=== PATIENT | female | born 1975 | race Caucasian/White ===

== ENCOUNTER 2016-07-08 05:51 | Emergency (ER) | payer SELFPAY ==
[~2016-07-08] VITALS: Ht 162.6 cm; Wt 97.2 kg
[~2016-07-08 05:51] MED LIST: GABA300C3 PO; GEOD80CA PO; LISI40TA PO; RISP1 PO; ZOLO20CO PO
[2016-07-08 05:57] VITALS: BP 113/80; PULSE 79; RESP 18; TEMP 98.3; O2SAT 96
[2016-07-08] MEDS ORDERED: RISP3 PO (06:06)
[2016-07-08] MEDS ORDERED: ZIPR40 PO (06:06)
[2016-07-08] MEDS ORDERED: GABA300C5 PO (06:06)
[2016-07-08] MEDS ORDERED: ORPHENADRINE INJ 60 MG/2 ML AMP IM ONE (06:15)
[2016-07-08] MEDS ORDERED: KETOROLAC TROMETHAMINE 60 MG/2 ML (IM) VIAL IM ONE (06:15)
--- NOTE | 2016-07-08 06:24 | PD ---
HPI Chief Complaint: Pain: Acute or Chronic Time Seen by Provider: 06:54 Travel History International Travel<30 days: No Contact w/Intl Traveler<30days: No Traveled to known affect area: No History of Present Illness HPI 41 year-old female presents to the emergency department by private transportation in the care of her spouse for evaluation of low back pain and left hip pain that awakened her from sleep this morning. Patient reports pain radiates down her left ear. No report of numbness tingling or weakness or bladder or bowel dysfunction or saddle anesthesia. Patient reports she did injure her back for further years ago. Patient denies any known recent injury. Patient has been taking left over antibiotic for a possible urinary tract infection. No fever or chills. No report of chest pain shortness of breath respiratory illness nausea vomiting diarrhea or abdominal pain. Patient rates low back pain and hip pain as severe. Patient has been well otherwise. Patient denies is status post hysterectomy history of endometriosis with 3 laparoscopic surgeries also status post 2 in the past. Patient also has history of hypertension. Patient has taken no medications prior to arrival to the emergency department. Pain is 10 over 10 intensity. PFSH Past Medical History Narrative Medical Anxiety depression bipolar disorder hypertension hysterectomy laparoscopic surgery low back pain injury pattern no tobacco use alcohol use or substance use nursing notes reviewed Arthritis: No Asthma: No Autoimmune Disease: No Blood Disorders: No Bipolar Disorder: Yes Anxiety: Yes Depression: Yes Heart Rhythm Problems: No Cancer: No Cardiovascular Problems: No High Cholesterol: No Chemotherapy: No Chest Pain: No Congestive Heart Failure: No COPD: No Cerebrovascular Accident: No Diabetes: No Diminished Hearing: No Gastrointestinal Disorders: No GERD: No Glaucoma: No Genitourinary: No Headaches: No Hepatitis: No Hiatal Hernia: No Hypertension: Yes Immune Disorder: No Kidney Stones: No Musculoskeletal: Yes (HERNIATED DISKS L4, L5, L6) Neurologic: Yes (NERVE DAMAGE FROM c section) Psychiatric: Yes (PTSD) Reproductive: Yes (ENDOMETRIOSIS.) Respiratory: No Immunizations Current: No Migraines: No Myocardial Infarction: No Radiation Therapy: No Renal Failure: No Seizures: No Sleep Apnea: No Thyroid Disease: No Ulcer: No PNEUMOCCOCAL Vaccine (Year): 3 ?: Not Menopausal: Yes : 4 Para: 2 Miscarriage: 0 : 2 Past Surgical History Abdominal Surgery: Yes (laparoscopy x 3) AICD: No Cardiac Surgery: No Section: Yes (1991 and 1995) Ear Surgery: No Endocrine Surgery: No Eye Surgery: No Genitourinary Surgery: No Gynecologic Surgery: Yes (2 C-SECTIONS, LAP- X 3) Hysterectomy: Yes Neurologic Surgery: No Oral Surgery: No Pacemaker: No Thoracic Surgery: No Other Surgery: Yes (LAP SCOPE X 3) Social History Alcohol Use: No (SOBER SINCE 2012) Tobacco Use: No Substance Use: No Allergies-Medications (Allergen,Severity, Reaction): Coded Allergies: No Known Allergies (Verified , 07/08/16) Reported Meds & Prescriptions Reported Meds & Active Scripts Active Robaxin (Methocarbamol) 750 Mg Tab 750 Mg PO Q6HR Lortab (Hydrocodone-Acetaminophen) 5-325 Mg Tab 1 Tab PO Q6H PRN Pyridium (Phenazopyridine HCl) 100 Mg Tab 100 Mg PO Q8HR Bactrim DS (Sulfamethoxazole-Trimethoprim) 800-160 Mg Tab 1 Tab PO BID Reported Geodon (Ziprasidone) Unknown Strength Cap Unknown Dose PO BID Risperdal (Risperidone) 3 Mg Tab 3 Mg PO HS Gabapentin 300 Mg Cap 300 Mg PO BID Review of Systems Except as stated in HPI: all other systems reviewed are Neg General / Constitutional: No: Fever, Chills HENT: No: Headaches, Congestion, Neck Pain Cardiovascular: No: Chest Pain or Discomfort, Diaphoresis Respiratory: No: Cough, Shortness of Breath Gastrointestinal: No: Nausea, Vomiting, Abdominal Pain Genitourinary: Positive: Urgency, Frequency, Flank Pain Musculoskeletal: Positive: Pain (low back pain left hip pain) Skin: No Rash Neurologic: No: Weakness, Dizziness, Syncope, Focal Abnormalities, Coordination Problem, Change in Mentation, Paresthesia, Incontinence, Sensory Disturbance Psychiatric: Positive: Anxiety Endocrine: No: Heat Intolerance Hematologic/Lymphatic: No: Easy Bruising Physical Exam Narrative GENERAL: Well-developed well-nourished female in no acute distress no respiratory distress intermittently anxious appearing SKIN: Warm and dry. HEAD: Atraumatic. Normocephalic. EYES: Pupils equal and round. No scleral icterus. No injection or drainage. ENT: No nasal bleeding or discharge. Mucous membranes pink and moist. NECK: Trachea midline. No JVD. CARDIOVASCULAR: Regular rate and rhythm. RESPIRATORY: No accessory muscle use. Clear to auscultation. Breath sounds equal bilaterally. GASTROINTESTINAL: Abdomen soft, non-tender, nondistended. Hepatic and splenic margins not palpable. MUSCULOSKELETAL: Extremities without clubbing, cyanosis, or edema. No obvious deformities. DTRs 2+ and equal bilateral lower extremities without clonus. Sensory exam intact. Reproducible pain with palpation over the left SI joint. Negative straight leg raising. NEUROLOGICAL: Awake and alert. No obvious cranial nerve deficits. Motor grossly within normal limits. Five out of 5 muscle strength in the arms and legs. Normal speech. PSYCHIATRIC: Appropriate mood and affect; insight and judgment normal. Data Data Last Documented VS Vital Signs Date Time Temp Pulse Resp B/P Pulse Ox O2 Delivery O2 Flow Rate FiO2 07/08/16 06:07 07/08/16 05:57 98.3 79 18 96 Orders Urinalysis - C+S If Indicated (07/08/16 06:14) Spine, Lumbar - Ltd (Ap & Lat) (07/08/16 ) Orphenadrine Inj (Norflex Inj) (07/08/16 06:15) Hip, Uni(Ap&Lat) W Ap Pelvis (07/08/16 ) Ketorolac Inj (Toradol Inj) (07/08/16 06:15) Urine Culture (07/08/16 06:30) Ceftriaxone Inj (Rocephin Inj) (07/08/16 07:15) Lidocaine 1% Inj (50 Ml) (Xylocaine 1% I (07/08/16 07:15) Sulfamet-Trimeth Ds 800-160 Mg (Bactrim (07/08/16 07:15) Labs Laboratory Tests Test 07/08/16 06:30 Urine Color YELLOW Urine Turbidity MOD Urine pH 5.5 Urine Specific [place] 1.009 Urine Protein NEG mg/dL Urine Glucose (UA) NEG mg/dL Urine Ketones NEG mg/dL Urine Occult Blood TRACE Urine Nitrite POS Urine Bilirubin NEG Urine Leukocyte Esterase MOD Urine RBC 0-3 /hpf Urine WBC 25-49 /hpf Urine WBC Clumps OCC Urine Squamous Epithelial > 8 /hpf Cells Urine Bacteria MANY /hpf Urine Mucus FEW /lpf Microscopic Urinalysis Comment CULTURE INDICATED MDM Medical Decision Making Medical Screen Exam Complete: Yes Emergency Medical Condition: Yes Medical Record Reviewed: Yes Interpretation(s) UA: Positive nitrites positive WBCs positive bacteria; culture indicated Left hip x-ray: no acute bony abnormality noted Lumbar spine x-ray limited: No acute bony abnormalities identified Differential Diagnosis Sciatica, acute sacroiliitis, HNP, UTI; unlikely septic arthritis or cauda equina syndrome Narrative Course Patient was stable vital signs able to sit upright is minimal assistance but does have reproducible left SI tenderness and complains of recent UTI; patient administered Toradol 60 mg IM and Norflex 60 mg IM urine specimen collected and plain imaging of the lumbar spine and hip obtained Patient able to ambulate to the bathroom without assistance. Patient with abnormal urinalysis; first dose of antibiotic administered in the emergency department. Patient notes after Toradol and Norflex is clinically improved. Imaging studies revealed no acute bony abnormality. Patient is stable for outpatient management. Diagnosis Primary Impression: UTI (urinary tract infection) Qualified Code: N30.00 - Acute cystitis without hematuria Additional Impression: Sacroiliitis Referrals: [facility] call for appointment Primary Care Physician call for appointment Patient Instructions: General Instructions Additional Instructions: Increase fluid hydration Complete course of antibiotic as prescribed Take pain medication as prescribed as needed Apply moist heat to low back area Monitor temperature every 4 hours and take acetaminophen/Tylenol as needed for fever 100.4F or greater or for minor pain Take ibuprofen/Motrin/Advil 600 mg as often as every 6 hours are up to 800 mg as often as every 8 hours for pain associated with inflammation or for fever 100.4F or greater; did not use high-dose ibuprofen for greater than 2-3 days Follow-up with your primary care provider Return to the emergency department for any concerns or change in condition Med/Other Pt SpecificInfo: Prescription(s) given Scripts Methocarbamol (Robaxin)750 Mg [id number] Mg PO Q6HR #10 TAB Ref 0 Prov:Ingrid Chisholm MD 07/08/16 Hydrocodone-Acetaminophen (Lortab)5-325 Mg Tab1 Tab PO Q6H PRN (PAIN) #12 TAB Ref 0 Prov:Ingrid Chisholm MD 07/08/16 Phenazopyridine (Pyridium)100 Mg [id number] Mg PO Q8HR #6 TAB Ref 0 Prov:Ingrid Chisholm MD 07/08/16 Sulfamethoxazole-Trimethoprim (Bactrim DS)800-160 Mg Tab1 Tab PO BID #20 TAB Ref 0 Prov:Ingrid Chisholm MD 07/08/16 Disposition: 01 DISCHARGE HOME Condition: Stable Ingrid Chisholm MD Jul 08, 2016 06:24
[2016-07-08 06:41] LABS: BLOOD, URINE TRACE (NEG); GLUCOSE,URINE NEG (NEG); KETONE, URINE NEG (NEG); PH, URINE 5.5 (5.0-8.5)
[2016-07-08 06:44] LABS: NITRITE,URINE POS (NEG)
[2016-07-08 06:47] LABS: URINE COLOR YELLOW (YELLW/STRAW)
[2016-07-08 06:49] LABS: MUCUS URINE FEW /lpf (OCC); SQUAMOUS EPITHELIAL CELL URINE > 8 /hpf (0-5)
[2016-07-08 06:51] LABS: BACTERIA, URINE MANY /hpf; COMMENT (UR) CULTURE INDICATED; CULTURE IF INDICATED CULTURE INDICATED; RBC, URINE 0-3 /hpf (0-3)
[2016-07-08] MEDS ORDERED: HYDR-3533 PO (07:00)
[2016-07-08] MEDS ORDERED: ROBA750T PO (07:00)
[2016-07-08] MEDS ORDERED: PHEN0.4T PO (07:00)
[2016-07-08] MEDS ORDERED: BACT800T5 PO (07:00)
[2016-07-08] MEDS ORDERED: LIDOCAINE HCL 1% 50 ML VIAL XX ONE (07:15)
[2016-07-08] MEDS ORDERED: SULFAMETHOXAZOLE-TRIMETHOPRIM DS 800-160 MG TAB PO ONE (07:15)
--- NOTE | 2016-07-08 07:21 | RADHPO ---
EXAM DATE/TIME: 07/08/2016 06:58 [facility] COMPARISON: No previous studies available for comparison. INDICATIONS : Left hip pain / no known injury. MEDICAL HISTORY : None. SURGICAL HISTORY : Hysterectomy. section. ENCOUNTER: Initial ACUITY: 1 day PAIN SCORE: 8/10 LOCATION: Left Hip FINDINGS: Examination of the left hip was performed with AP Pelvis. The primary and secondary trabecular patte rn of the femoral neck is intact. The hip joint is of normal width without significant sclerosis or bony hypertrophy. The acetabulum is grossly intact. CONCLUSION: Unremarkable examination of the left hip. Lester Arguelles MD on July 08, 2016 at 7:19 Board Certified Radiologist. This report was verified electronically.
--- NOTE | 2016-07-08 07:22 | RADHPO ---
EXAM DATE/TIME: 07/08/2016 07:02 [facility] COMPARISON: No previous studies available for comparison. INDICATIONS : Low back pain / no known injury. MEDICAL HISTORY : None. SURGICAL HISTORY : Hysterectomy. section. ENCOUNTER: Initial ACUITY: 1 day PAIN SCORE: 8/10 LOCATION: Bilateral low back FINDINGS: Two view examination was performed. There are five non-rib bearing vertebral bodies. The vertebral bodies are in normal alignment without evidence of subluxation or scoliosis. The disc spaces are olena rowed at L4-5 and L5-S1 consistent with degenerative disc disease. Minimal anterior marginal spurring .. The pedicles are intact. Bony mineralization is normal. No fracture is identified. CONCLUSION: Narrowed L4-5 and L5-S1 disc spaces consistent with degenerative change. Minimal anterior marginal sp sandeep Arguelles MD on July 08, 2016 at 7:20 Board Certified Radiologist. This report was verified electronically.
[2016-07-08 07:53] VITALS: RESP 18
== END 2016-07-08 07:54 | disposition home or self-care (01) ==
LOC: PHEFT 05:51
DX: N30.00 Acute cystitis without hematuria (principal); M46.1 Sacroiliitis, not elsewhere classified; B96.20 Unspecified Escherichia coli [E. coli] as the cause of diseases classified elsewhere; I10 Essential (primary) hypertension; Z87.39 Personal history of other diseases of the musculoskeletal system and connective tissue; Z86.69 Personal history of other diseases of the nervous system and sense organs; Z86.59 Personal history of other mental and behavioral disorders
CPT/HCPCS: 72100; 73502; 81001; 87077; 87086; 87186; 96372; 99284; J0696; J1885; J2360

== ENCOUNTER 2017-02-01 07:46 | Observation (INO) | payer SELFPAY ==
[~2017-02-01] VITALS: Ht 162.6 cm; Wt 93.2 kg
[2017-02-01] VITALS (7 sets, daily range): BP systolic 125–184; BP diastolic 89–122; PULSE 65–82; RESP 16–18; TEMP 97.1–98.3; O2SAT 93–98
[~2017-02-01 07:46] MED LIST changes: +BACT800T5 PO; -GABA300C3 PO; +GABA300C5 PO; -GEOD80CA PO; +HYDR-3533 PO; -LISI40TA PO; +PHEN0.4T PO; -RISP1 PO; +RISP3 PO; +ROBA750T PO; +ZIPR40 PO; -ZOLO20CO PO
[2017-02-01] MEDS ORDERED: SODIUM CHLOR 0.9% 1000 ML INJ 1,000 ML IV ONE (08:04)
--- NOTE | 2017-02-01 08:10 | PD ---
HPI Chief Complaint: Syncope/Near-Syncope Time Seen by Provider: 07:59 Travel History International Travel<30 days: No Contact w/Intl Traveler<30days: No Traveled to known affect area: No History of Present Illness HPI 41-year-old female presents after she states she had a blackout episode this morning where she fell and hit her head. She states she also injured her left knee and right foot. She states she's had these episodes before but hasn't had a workup as to why she keeps passing out. She states that she didn't really eat dinner last night and was working on getting breakfast when she had a pass out episode. She states that she didn't have any symptoms before she fell. She states she has no chest pain or other concurrent complaints actively. She states she currently doesn't have a primary doctor and has been off of her blood pressure medication because of this for a couple years. Quality is loss of consciousness. Severity is from standing. PFSH Past Medical History Arthritis: No Asthma: No Autoimmune Disease: No Blood Disorders: No Bipolar Disorder: Yes Anxiety: Yes Depression: Yes Heart Rhythm Problems: No Cancer: No Cardiovascular Problems: No High Cholesterol: No Chemotherapy: No Chest Pain: No Congestive Heart Failure: No COPD: No Cerebrovascular Accident: No Diabetes: No Diminished Hearing: No Gastrointestinal Disorders: No GERD: No Glaucoma: No Genitourinary: No Headaches: No Hepatitis: No Hiatal Hernia: No Hypertension: Yes Immune Disorder: No Kidney Stones: No Musculoskeletal: Yes (HERNIATED DISKS L4, L5, L6) Neurologic: Yes (NERVE DAMAGE FROM c section) Psychiatric: Yes (PTSD) Reproductive: Yes (ENDOMETRIOSIS.) Respiratory: No Immunizations Current: No Migraines: No Myocardial Infarction: No Radiation Therapy: No Renal Failure: No Seizures: No Sleep Apnea: No Thyroid Disease: No Ulcer: No PNEUMOCCOCAL Vaccine (Year): 3 ?: Not Menopausal: Yes : 4 Para: 2 Miscarriage: 0 : 2 Past Surgical History Abdominal Surgery: Yes (laparoscopy x 3) AICD: No Cardiac Surgery: No Section: Yes (1991 and 1995) Ear Surgery: No Endocrine Surgery: No Eye Surgery: No Genitourinary Surgery: No Gynecologic Surgery: Yes (2 C-SECTIONS, LAP- X 3) Hysterectomy: Yes Neurologic Surgery: No Oral Surgery: No Pacemaker: No Thoracic Surgery: No Other Surgery: Yes (LAP SCOPE X 3) Social History Alcohol Use: No (SOBER SINCE 2013) Tobacco Use: No Substance Use: No Allergies-Medications (Allergen,Severity, Reaction): Coded Allergies: No Known Allergies (Verified , 02/01/17) Reported Meds & Prescriptions Reported Meds & Active Scripts Active Reported Geodon (Ziprasidone) Unknown Strength Cap Unknown Dose PO BID Risperdal (Risperidone) 3 Mg Tab 3 Mg PO HS Gabapentin 300 Mg Cap 300 Mg PO BID Review of Systems Except as stated in HPI: all other systems reviewed are Neg Physical Exam Narrative GENERAL: Well-nourished, well-developed patient. well appearing SKIN: Warm and dry. HEAD: Normocephalic EYES: No injection or drainage. pupils are equal ENT: No nasal drainage noted. NECK: Supple, trachea midline. nttp in midline with rom and palpation CARDIOVASCULAR: Regular rate and rhythm RESPIRATORY: Breath sounds equal bilaterally. No accessory muscle use. GASTROINTESTINAL: Abdomen soft, non-tender, nondistended. EXTREMITIES: No edema. Pain with palpation of right foot and left knee, no pain with other joints , neurovascularly intact, no lacerations over, compartments soft. BACK: Nontender without obvious deformity in midline across spine. NEUROLOGICAL: Awake and alert. Motor and sensory grossly within normal limits. Normal speech. Data Data Last Documented VS Vital Signs Date Time Temp Pulse Resp B/P (MAP) Pulse Ox O2 Delivery O2 Flow Rate FiO2 02/01/17 08:33 98 Room Air 02/01/17 07:54 98.0 82 16 145/89 (107) Orders Orders Foot, Complete (Biz4fcs) (02/01/17 08:04) Knee, Complete (4vws) (02/01/17 08:04) Electrocardiogram (02/01/17 08:04) Complete Blood Count With Diff (02/01/17 08:04) Comprehensive Metabolic Panel (02/01/17 08:04) Magnesium (Mg) (02/01/17 08:04) Ckmb (Isoenzyme) Profile (02/01/17 08:04) Troponin I (02/01/17 08:04) Act Partial Throm Time (Ptt) (02/01/17 08:04) Prothrombin Time / Inr (Pt) (02/01/17 08:04) Urinalysis - C+S If Indicated (02/01/17 08:04) Chest, Single Ap (02/01/17 08:04) Ct Brain W/O Iv Contrast(Rout) (02/01/17 08:04) Ecg Monitoring (02/01/17 08:04) Iv Access Insert/Monitor (02/01/17 08:04) Oximetry (02/01/17 08:04) Sodium Chloride 0.9% Flush (Ns Flush) (02/01/17 08:15) Sodium Chlor 0.9% 1000 Ml Inj (Ns 1000 M (02/01/17 08:04) Admit Order (Ed Use Only) (02/01/17 09:40) Labs Laboratory Tests Test 02/01/17 08:27 White Blood Count 4.0 TH/MM3 Red Blood Count 4.48 MIL/MM3 Hemoglobin 12.2 GM/DL Hematocrit 36.2 % Mean Corpuscular Volume 80.9 FL Mean Corpuscular Hemoglobin 27.3 PG Mean Corpuscular Hemoglobin Concent 33.7 % Red Cell Distribution Width 13.4 % Platelet Count 101 TH/MM3 Mean Platelet Volume 7.8 FL Neutrophils (%) (Auto) 50.8 % Lymphocytes (%) (Auto) 37.8 % Monocytes (%) (Auto) 9.7 % Eosinophils (%) (Auto) 0.8 % Basophils (%) (Auto) 0.9 % Neutrophils # (Auto) 2.1 TH/MM3 Lymphocytes # (Auto) 1.5 TH/MM3 Monocytes # (Auto) 0.4 TH/MM3 Eosinophils # (Auto) 0.0 TH/MM3 Basophils # (Auto) 0.0 TH/MM3 CBC Comment DIFF FINAL Differential Comment Prothrombin Time 11.8 SEC Prothromb Time International Ratio 1.1 RATIO Activated Partial Thromboplast Time 28.0 SEC Urine Collection Type CLEAN CATCH Urine Color YELLOW Urine Turbidity CLEAR Urine pH 5.5 Urine Specific [place] 1.010 Urine Protein NEG mg/dL Urine Glucose (UA) NEG mg/dL Urine Ketones NEG mg/dL Urine Occult Blood NEG Urine Nitrite NEG Urine Bilirubin NEG Urine Leukocyte Esterase NEG Urine Squamous Epithelial Cells 0-5 /hpf Microscopic Urinalysis Comment CULT NOT INDICATED Blood Urea Nitrogen 6 MG/DL Creatinine 0.61 MG/DL Random Glucose 94 MG/DL Total Protein 7.9 GM/DL Albumin 3.3 GM/DL Calcium Level 8.8 MG/DL Magnesium Level 1.7 MG/DL Alkaline Phosphatase 77 U/L Aspartate Amino Transf (AST/SGOT) 26 U/L Alanine Aminotransferase (ALT/SGPT) 18 U/L Total Bilirubin 0.8 MG/DL Sodium Level 135 MEQ/L Potassium Level 3.3 MEQ/L Chloride Level 99 MEQ/L Carbon Dioxide Level 27.8 MEQ/L Anion Gap 8 MEQ/L Estimat Glomerular Filtration Rate 107 ML/MIN Total Creatine Kinase 29 U/L Troponin I LESS THAN 0.02 NG/ML MDM Medical Decision Making Medical Screen Exam Complete: Yes Emergency Medical Condition: Yes Medical Record Reviewed: Yes (pmh confirmed) Interpretation(s) EKG shows sinus rhythm at [address] depression V1 through V5 without ST elevation or T-wave inversion CBC & BMP Diagram 02/01/17 08:27 Total Protein 7.9, Albumin 3.3 L, Calcium Level 8.8, Magnesium Level 1.7, Alkaline Phosphatase 77, Aspartate Amino Transf (AST/SGOT) 26, Alanine Aminotransferase (ALT/SGPT) 18, Total Bilirubin 0.8 Last 24 hours Impressions Knee X-Ray 02/01/17803 Signed Impressions: Service Date/Time: Wednesday, February 01, 2017 08:58 - CONCLUSION: Unremarkable examination of the left knee. Brenden Joiner MD Head CT 02/01/17803 Signed Impressions: Service Date/Time: Wednesday, February 01, 2017 08:44 - CONCLUSION: Normal examination. Brenden Joiner MD Foot X-Ray 02/01/17803 Signed Impressions: Service Date/Time: Wednesday, February 01, 2017 08:54 - CONCLUSION: A fracture is not seen. Brenden Joiner MD Chest X-Ray 02/01/17803 Signed Impressions: Service Date/Time: Wednesday, February 01, 2017 08:51 - CONCLUSION: No acute abnormality seen. Brenden Joiner MD Differential Diagnosis anemia, vasovagal, bleed, fracture, dehydration, atypical cardiac... Narrative Course Will check blood work, trauma imaging and reevaluate ED workup without traumatic findings from syncope. Given mild EKG changes in setting of syncope and no outpatient follow-up I advised for overnight observation for further testing given she has multi year untreated high blood pressure and the above. She agrees to this plan of care. Physician Communication Physician Communication dr escalante agrees to admit Diagnosis Primary Impression: Syncope Qualified Codes: R55 - Syncope and collapse Admitting Information Admitting Physician Requests: Observation Gloria Madera MD Feb 01, 2017 08:10
[2017-02-01] MEDS ORDERED: SODIUM CHLORIDE 0.9% FLUSH 10 ML FLUSH IVF PRN (08:15)
[2017-02-01 08:36] LABS: AUTOMATED NEUTROPHIL # 2.1 TH/MM3 (1.8-7.7); BASOPHIL % 0.9 % (0.0-2.0); BLOOD, URINE NEG (NEG); EOSINOPHIL % 0.8 % (0.0-4.0); GLUCOSE,URINE NEG (NEG); HEMATOCRIT 36.2 % (35.0-46.0); HEMO FLAGS DIFF FINAL; KETONE, URINE NEG (NEG); LYMPH % 37.8 % (9.0-44.0); LYMPHOCYTE # 1.5 TH/MM3 (1.0-4.8); MEAN CELL VOLUME 80.9 FL (80.0-100.0); MEAN CORPUSCULAR HEMOGLOBIN 27.3 PG (27.0-34.0); MEAN CORPUSCULAR HGB CONC 33.7 % (32.0-36.0); MONO % 9.7 % (0.0-8.0); NEUT % 50.8 % (16.0-70.0); NITRITE,URINE NEG (NEG); PH, URINE 5.5 (5.0-8.5); PLATELET COUNT 101 TH/MM3 (150-450); RED BLOOD COUNT 4.48 MIL/MM3 (4.00-5.30); RED CELL DISTRIBUTION WIDTH 13.4 % (11.6-17.2)
[2017-02-01 08:41] LABS: METHOD OF COLLECTION CLEAN CATCH; URINE COLOR YELLOW (YELLW/STRAW)
[2017-02-01 08:42] LABS: COMMENT (UR) CULT NOT INDICATED; CULTURE IF INDICATED CULT NOT INDICATED; SQUAMOUS EPITHELIAL CELL URINE 0-5 /hpf (0-5)
[2017-02-01 08:43] LABS: CHLORIDE 99 MEQ/L (98-107); POTASSIUM 3.3 MEQ/L (3.5-5.1); SODIUM (NA) 135 MEQ/L (136-145)
[2017-02-01 08:46] LABS: ANION GAP 8 MEQ/L (5-15); BICARBONATE 27.8 MEQ/L (21.0-32.0); BLOOD UREA NITROGEN 6 MG/DL (7-18); MAGNESIUM 1.7 MG/DL (1.5-2.5)
[2017-02-01 08:47] LABS: INTERNATIONAL NORMALIZED RATIO 1.1 RATIO; PROTHROMBIN TIME - PATIENT 11.8 SEC (9.8-11.6)
[2017-02-01 08:49] LABS: ALT (GPT) 18 U/L (10-53); GLOMERULAR FILTRATION RATE 107 ML/MIN (>89)
[2017-02-01 08:51] LABS: TOTAL BILIRUBIN ADULT 0.8 MG/DL (0.2-1.0)
[2017-02-01 08:52] LABS: ALKALINE PHOSPHATASE 77 U/L (45-117)
[2017-02-01 08:54] LABS: CREATINE KINASE 29 U/L (26-192)
[2017-02-01 08:58] LABS: AST (GOT) 26 U/L (15-37)
--- NOTE | 2017-02-01 09:20 | RADRPT ---
EXAM DATE/TIME: 02/01/2017 08:44 [facility] COMPARISON: CT BRAIN W/O CONTRAST, May 18, 2013, 23:45. INDICATIONS : Syncpal episode early this morning. Patient fell and hit top of her head. RADIATION DOSE: 61.02 CTDIvol (mGy) MEDICAL HISTORY : None SURGICAL HISTORY : section. Hysterectomy. ENCOUNTER: Initial ACUITY: 1 day PAIN SCALE: 6/10 LOCATION: cranial TECHNIQUE: Multiple contiguous axial images were obtained of the head. Using automated exposure control and adj ustment of the mA and/or kV according to patient size, radiation dose was kept as low as reasonably a chievable to obtain optimal diagnostic quality images. DICOM format image data is available electro nically for review and comparison. FINDINGS: CEREBRUM: The ventricles are normal for age. No evidence of midline shift, mass lesion, hemorrhage or acute in farction. No extra-axial fluid collections are seen. POSTERIOR FOSSA: The cerebellum and brainstem are intact. The 4th ventricle is midline. The cerebellopontine angle i s unremarkable. EXTRACRANIAL: The visualized portion of the orbits is intact. SKULL: The calvaria is intact. No evidence of skull fracture. CONCLUSION: Normal examination. Brenden Joiner MD on February 01, 2017 at 9:17 Board Certified Radiologist. This report was verified electronically.
--- NOTE | 2017-02-01 09:21 | RADRPT ---
EXAM DATE/TIME: 02/01/2017 08:51 [facility] COMPARISON: CHEST SINGLE AP, May 26, 2013, 13:16. INDICATIONS : Syncope with fall MEDICAL HISTORY : None. SURGICAL HISTORY : section. ENCOUNTER: Initial ACUITY: 1 day PAIN SCORE: 0/10 LOCATION: Bilateral chest FINDINGS: The heart size is normal. There is minimal increased density at the lateral left base likely related to scarring. This was present previously. A focal consolidation is not seen. No effusion is seen. CONCLUSION: No acute abnormality seen. Brenden Joiner MD on February 01, 2017 at 9:19 Board Certified Radiologist. This report was verified electronically.
--- NOTE | 2017-02-01 09:23 | RADRPT ---
EXAM DATE/TIME: 02/01/2017 08:54 [facility] COMPARISON: No previous studies available for comparison. INDICATIONS : Sycope with fall, right foot pain worse 5th toe and across top of foot MEDICAL HISTORY : None. SURGICAL HISTORY : section. ENCOUNTER: Initial ACUITY: 1 day PAIN SCORE: 9/10 LOCATION: Right foot FINDINGS: Three view examination of the right foot demonstrates no soft tissue swelling, dislocation, or fractu re. The tarsal bones appear intact. The interphalangeal and metatarsophalangeal joints are intact. The calcaneus is intact. Bony mineralization is normal. CONCLUSION: A fracture is not seen. Brenden Joiner MD on February 01, 2017 at 9:20 Board Certified Radiologist. This report was verified electronically.
--- NOTE | 2017-02-01 09:24 | RADRPT ---
EXAM DATE/TIME: 02/01/2017 08:58 [facility] COMPARISON: No previous studies available for comparison. INDICATIONS : Syncope with fall, left knee pain MEDICAL HISTORY : None. SURGICAL HISTORY : section. ENCOUNTER: Initial ACUITY: 1 day PAIN SCORE: 6/10 LOCATION: Left knee FINDINGS: Four view examination of the left knee demonstrates no evidence of fracture or dislocation. Bony min eralization is normal. The articular surfaces are intact. The suprapatellar soft tissues have a nor mal configuration. CONCLUSION: Unremarkable examination of the left knee. Brenden Joiner MD on February 01, 2017 at 9:22 Board Certified Radiologist. This report was verified electronically.
[2017-02-01] MEDS ORDERED: ACETAMINOPHEN/HYDROcodone 325 MG/5 MG TAB PO ONE (10:30)
[2017-02-01] MEDS ORDERED: SODIUM CHLORIDE 0.9% FLUSH 10 ML FLUSH IV FLUSH PRN (11:15)
--- NOTE | 2017-02-01 12:43 | EKG ---
Date Performed: 02/01/2017 Time Performed: 08:30:52 PTAGE: 41 years EKG: Sinus rhythm ST/T-WAVE ABNORMALITY, CONSIDER ANTERIOR ISCHEMIA ABNORMAL ECG PREVIOUS TRACING : 05/26/2013 12.37 Compared to previous tracing, anterior ST/T changes are now present. DOCTOR: Aris Victor Interpretating Date/Time 02/01/2017 12:41:56
--- NOTE | 2017-02-01 14:37 | RADRPT ---
EXAM DATE/TIME: 02/01/2017 13:59 [facility] COMPARISON: No previous studies available for comparison. INDICATIONS : Syncope. MEDICAL HISTORY : Hypertension. Dyspnea. Endometriosis. SURGICAL HISTORY : section. Hysterectomy. Laparoscopy. ENCOUNTER: Initial ACUITY: 1 day PAIN SCORE: 0/10 LOCATION: Bilateral neck PEAK SYSTOLIC VELOCITIES (cm/sec): ICA/CCA RATIO: Right: 0.9 Left: 1.3 ICA: Right: 74 Left: 78 CCA: Right: 83 Left: 62 ECA: Right: 59 Left: 66 VERTEBRAL: Right: 48 antegrade Left: 44 antegrade Elevated flow velocities and ICA/CCA ratios have been found to correlate with increased degrees of vessel stenosis, calculated as percentage of diameter relative to a normal segment of distal ICA/CCA FINDINGS: RIGHT CAROTID: No significant stenosis is visualized. The waveforms are within normal limits. LEFT CAROTID: No significant stenosis is visualized. The waveforms are within normal limits. VERTEBRAL ARTERIES: Antegrade flow is seen in both vertebral arteries. MISCELLANEOUS: None. CONCLUSION: 1. No significant carotid flow-limiting stenosis. 2. Antegrade vertebral artery flow bilaterally. Inder Hummel MD on February 01, 2017 at 14:35 Board Certified Radiologist. This report was verified electronically.
--- NOTE | 2017-02-01 16:50 | HHI.HP ---
[facility] Primary [facility] Physician No Primary Care Physician Admission Diagnosis syncope Diagnoses: (1) Syncope Diagnosis: Principal Chief Complaint: Passing out Travel History International Travel<30 Days: No Contact w/Intl Traveler <30 Da: No Traveled to Known Affected Are: No History of Present Illness Written by Dev Quinteros, acting as scribe for Dr. Story on 02/01/17 at 16:36. 41-year-old female with known history of hypertension, anxiety, depression, bipolar, herniated disc of the lumbar spine, posttraumatic stress disorder who presented to hospital because of syncopal episodes. Patient states for the last 2 months she has been having episodes of syncope and passing out. She states that it usually happens whenever she stands up and walks for approximately 10 feet that she develops lightheadedness dizziness and blacks out. Denies any loss of bowel or bladder control. Patient states that she is usually out for a few seconds and she has not confused when she wakes up. Patient states that she was standing up in the kitchen today and she had the same episode. This time she fell down hitting her right foot and she has significant pain in her foot so she came to the hospital for evaluation. Patient had workup done emergency department and there was no obvious etiology of the patient's syncope is recommended by the emergency physician the patient be observed in the hospital for further evaluation. Subsequently the patient has been complaining of a sharp left-sided chest pain without any radiation, nausea, vomiting, diaphoresis. It is reproducible on palpation over on the left side of the rib. She denies any shortness of breath or dyspnea. Patient did have orthostatic vitals performed which did show blood pressure while laying down 181/116 and when she stood up it was 143/103.. Patient does have history of hypertension which she has not taken any blood pressure medication over 2 years because she has not had a prescription for has not followed up with any primary medical doctor. She used to be on lisinopril. Review of Systems Constitutional: COMPLAINS OF: Dizziness Cardiovascular: COMPLAINS OF: Syncope Past Family Social History Past Medical History Hypertension Bipolar disorder Anxiety Depression Herniated disc L4, L5, L6 Posttraumatic stress disorder History of endometriosis Past Surgical History Laparoscopic surgery 3 2 Hysterectomy Reported Medications Reported Meds & Active Scripts Active Reported Geodon (Ziprasidone) Unknown Strength Cap Unknown Dose PO BID Risperdal (Risperidone) 3 Mg Tab 3 Mg PO HS Gabapentin 300 Mg Cap 300 Mg PO BID Allergies: Coded Allergies: No Known Allergies (Verified , 02/01/17) Family History Reviewed and significant for mother still alive at age 61 but she does not know if she has any medical conditions. She does know that her aunt has breast cancer, her grandmother had lung cancer, she does not know her father. Social History Patient denies any tobacco or illicit drugs. She has been sober since 2012 Physical Exam Vital Signs Vital Signs Date Time Temp Pulse Resp B/P (MAP) Pulse Ox O2 Delivery O2 Flow Rate FiO2 02/01/17 12:30 97.8 69 16 181/116 (137) 93 181/122 (141) 143/101 (115) 02/01/17 11:00 146/92 (110) 02/01/17 08:33 98 Room Air 02/01/17 07:54 98.0 82 16 145/89 (107) 96 Physical Exam GENERAL: Well-developed, well-nourished, in no acute distress. alert and orientated HEENT: Head is normocephalic without any lesions or masses noted. Facial features are symmetric. Eyes: Pupils equal round reactive to light. Extraocular muscles are intact. Conjunctivae were clear. Oropharyngeal: Pharynx without any erythema edema. Tongue is midline without deviation. Buccal mucosa is moist without any masses or lesions NECK: Supple without any masses. Trachea midline no deviation. No JVD, no bruits are appreciated CARDIAC: Regular rhythm, regular rate. S1/S2 are heard. No murmurs gallops or rubs. Patient has reproducible tenderness noted along the left side rib LUNGS: Clear to auscultation bilaterally. No wheeze, rhonchi or rales. No use of accessory muscles on inspiration or expiration. ABDOMEN: Soft, nontender. Nondistended. Bowel sounds heard in all 4 quadrants. No organomegaly or masses. Negative rebound, negative guarding EXTREMITIES: No edema, pulses are equal bilaterally. No cyanosis or clubbing. Right foot fifth digit has ecchymosis NEUROLOGY: Mood and affect appear appropriate. Cranial nerves II through XII grossly intact. Muscle strength 5/5 in upper and lower extremities bilaterally. Deep tendon reflexes are 2+ in upper and lower extremities bilaterally. Laboratory Laboratory Tests Test 02/01/17 08:27 02/01/17 11:13 White Blood Count 4.0 Red Blood Count 4.48 Hemoglobin 12.2 Hematocrit 36.2 Mean Corpuscular Volume 80.9 Mean Corpuscular Hemoglobin 27.3 Mean Corpuscular Hemoglobin Concent 33.7 Red Cell Distribution Width 13.4 Platelet Count 101 Mean Platelet Volume 7.8 Neutrophils (%) (Auto) 50.8 Lymphocytes (%) (Auto) 37.8 Monocytes (%) (Auto) 9.7 Eosinophils (%) (Auto) 0.8 Basophils (%) (Auto) 0.9 Neutrophils # (Auto) 2.1 Lymphocytes # (Auto) 1.5 Monocytes # (Auto) 0.4 Eosinophils # (Auto) 0.0 Basophils # (Auto) 0.0 CBC Comment DIFF FINAL Differential Comment Prothrombin Time 11.8 Prothromb Time International Ratio 1.1 Activated Partial Thromboplast Time 28.0 Urine Collection Type CLEAN CATCH Urine Color YELLOW Urine Turbidity CLEAR Urine pH 5.5 Urine Specific [place] 1.010 Urine Protein NEG Urine Glucose (UA) NEG Urine Ketones NEG Urine Occult Blood NEG Urine Nitrite NEG Urine Bilirubin NEG Urine Leukocyte Esterase NEG Urine Squamous Epithelial Cells 0-5 Microscopic Urinalysis Comment CULT NOT INDICATED Blood Urea Nitrogen 6 Creatinine 0.61 Random Glucose 94 Total Protein 7.9 Albumin 3.3 Calcium Level 8.8 Magnesium Level 1.7 Alkaline Phosphatase 77 Aspartate Amino Transf (AST/SGOT) 26 Alanine Aminotransferase (ALT/SGPT) 18 Total Bilirubin 0.8 Sodium Level 135 Potassium Level 3.3 Chloride Level 99 Carbon Dioxide Level 27.8 Anion Gap 8 Estimat Glomerular Filtration Rate 107 Total Creatine Kinase 29 Troponin I LESS THAN 0.02 LESS THAN 0.02 Result Diagram: 02/01/1782602/01/17826 Imaging Last Impressions Knee X-Ray 02/01/17803 Signed Impressions: Service Date/Time: Wednesday, February 01, 2017 08:58 - CONCLUSION: Unremarkable examination of the left knee. Brenden Joiner MD Head CT 02/01/17803 Signed Impressions: Service Date/Time: Wednesday, February 01, 2017 08:44 - CONCLUSION: Normal examination. Brenden Joiner MD Foot X-Ray 02/01/17 0804 Signed Impressions: Service Date/Time: Wednesday, February 01, 2017 08:54 - CONCLUSION: A fracture is not seen. Brenden Joiner MD Chest X-Ray 02/01/1704 Signed Impressions: Service Date/Time: Wednesday, February 01, 2017 08:51 - CONCLUSION: No acute abnormality seen. Brenden Joiner MD Carotid Artery Ultrasound 02/01/17 0000 Signed Impressions: Service Date/Time: Wednesday, February 01, 2017 13:59 - CONCLUSION: 1. No significant carotid flow-limiting stenosis. 2. Antegrade vertebral artery flow bilaterally. Inder Hummel MD [place] VTE Risk Assessment Caprini VTE Risk Assessment: Mod/High Risk (score >= 2) Caprini Risk Assessment Model Point Value = 1 Point Value = 2 Point Value = 3 Point Value = 5 Age 41-60 Minor surgery BMI > 25 kg/m2 Swollen legs Varicose veins or History of unexplained or recurrent spontaneous Oral contraceptives or hormone replacement Sepsis (< 1 month) Serious lung disease, including pneumonia (< 1 month) Abnormal pulmonary function Acute myocardial infarction Congestive heart failure (< 1 month) History of inflammatory bowel disease Medical patient at bed rest Age 61-74 Arthroscopic surgery Major open surgery (> 45 min) Laparoscopic surgery (> 45 min) Malignancy Confined to bed (> 72 hours) Immobilizing plaster cast Central venous access Age >= 75 History of VTE Family history of VTE Factor V Leiden Prothrombin [id number] Lupus anticoagulant Anticardiolipin antibodies Elevated serum homocysteine Heparin-induced thrombocytopenia Other congenital or acquired thrombophilia Stroke (< 1 month) Elective arthroplasty Hip, pelvis, or leg fracture Acute spinal cord injury (< 1 month) Prophylaxis Regimen Total Risk Factor Score Risk Level Prophylaxis Regimen 0-1 Low Early ambulation 2 Moderate Order ONE of the following: *Sequential Compression Device (SCD) *Heparin 5000 units SQ BID 3-4 Higher Order ONE of the following medications: *Heparin 5000 units SQ TID *Enoxaparin/Lovenox 40 mg SQ daily (WT < 150 kg, CrCl > 30 mL/min) *Enoxaparin/Lovenox 30 mg SQ daily (WT < 150 kg, CrCl > 10-29 mL/min) *Enoxaparin/Lovenox 30 mg SQ BID (WT < 150 kg, CrCl > 30 mL/min) AND/OR *Sequential Compression Device (SCD) 5 or more Highest Order ONE of the following medications: *Heparin 5000 units SQ TID (Preferred with Epidurals) *Enoxaparin/Lovenox 40 mg SQ daily (WT < 150 kg, CrCl > 30 mL/min) *Enoxaparin/Lovenox 30 mg SQ daily (WT < 150 kg, CrCl > 10-29 mL/min) *Enoxaparin/Lovenox 30 mg SQ BID (WT < 150 kg, CrCl > 30 mL/min) AND *Sequential Compression Device (SCD) Assessment and Plan Assessment and Plan Syncopal episodes, recurrent CT the brain does not indicate any acute abnormality Carotid ultrasound did not indicate any acute abnormality Orthostatic vitals were positive for significant orthostasis Awaiting echocardiogram Continue monitor telemetry cardiology consultation Hypertension, uncontrolled Will defer blood pressure management to director biologics Right foot pain secondary to fall X-rays do not indicate any acute fracture Continue elevation, ice, ibuprofen Bipolar, anxiety, depression, posttraumatic stress disorder Continue gabapentin and Risperdal, nursing staff to obtain accurate dosage of Geodon DVT prevention sequential compression devices This note was transcribed by lena Quinteros. I, Dr. Renaldo Ulloa personally performed the history, physical exam, and medical decision making; and confirmed the accuracy of the information in the transcribed note. Authenticated by Dr. Renaldo Ulloa on 02/01/17 at 17:46. Problem Qualifiers (1) Syncope: Qualified Codes: R55 - Syncope and collapse Dev Quinteros Feb 01, 2017 16:50 Renaldo Oconnell MD Feb 01, 2017 17:46
--- NOTE | 2017-02-01 16:54 | PD.CONS ---
HPI Consult Requested By Reason for Consult Syncope with abnormal EKG Primary Care Physician No Primary Care Physician History of Present Illness The patient has no definite cardiac history. She notes that over the last few months she has had 3 episodes of passing out. This morning she woke up at 3-4 AM. She had not eaten that much last night. When she woke up she was extremely hungry. She got up from bed quickly, felt lightheaded and had a very transient syncopal episode. There was no incontinence or confusion afterwards nor any other cardiac symptoms. She has noted that this happened one other time when she woke up at night and got up quickly and then happened once when she was sitting down in the afternoon and got up quickly. The latter was witnessed by her and she states that this was extremely transient. She has no other cardiac symptomatology. Review of Systems HEENT: COMPLAINS OF: Lightheadedness Respiratory: COMPLAINS OF: Snoring, DENIES: Cough, Wheezing Cardiovascular: COMPLAINS OF: Syncope Genitourinary: DENIES: Urinary incontinence Neurologic: DENIES: Tingling or numbness Musculoskeletal: COMPLAINS OF: Joint pain Psychiatric: COMPLAINS OF: Depression, Sleep disturbances Past Family Social History Allergies: Coded Allergies: No Known Allergies (Verified , 02/01/17) Past Medical History Probable hypertension-untreated Obesity Probable sleep apnea-the patient has never been tested but uses a Cpap that a friend of hers got at a [employer] sale. Bipolar disorder Lumbar disc disease Endometriosis Prior alcoholism Past Surgical History 2 Hysterectomy Laparoscopic surgery for endometriosis Reported Medications Reported Meds & Active Scripts Active Reported Geodon (Ziprasidone) Unknown Strength Cap Unknown Dose PO BID Risperdal (Risperidone) 3 Mg Tab 3 Mg PO HS Gabapentin 300 Mg Cap 300 Mg PO BID Active Ordered Medications Current Medications Medications (Trade) Dose Ordered Sig/Abbi Route Start Time Stop Time Status Last Admin (NS Flush) 2 ml UNSCH PRN IV FLUSH 02/01/17 11:15 (NS Flush) 2 ml BID IV FLUSH 02/01/17 21:00 (Neurontin) 300 mg BID PO 02/01/17 21:00 (risperDAL) 3 mg HS PO 02/01/17 21:00 Family History Unremarkable for for premature coronary disease or cardiac disease Social History The patient is . She is a former alcoholic and has not drank since 2012. She does not smoke Physical Exam Vital Signs Vital Signs Date Time Temp Pulse Resp B/P (MAP) Pulse Ox O2 Delivery O2 Flow Rate FiO2 02/01/17 12:30 97.8 69 16 181/116 (137) 93 181/122 (141) 143/101 (115) 02/01/17 11:00 146/92 (110) 02/01/17 08:33 98 Room Air 02/01/17 07:54 98.0 82 16 145/89 (107) 96 Physical Exam CONSTITUTIONAL: Obese patient in no apparent distress. EYES: Conjunctiva normal. Sclera nonicteric. Eyelids normal. No xanthelasma. HEENT: Oral mucosa normal without pallor or cyanosis. NECK: JVD less than or equal to 5 cm of water. RESPIRATORY: Breathing is unlabored without accessory muscle use. Normal breath sounds. No wheezes, rales or rubs present. CARDIOVASCULAR: Normal point of maximal impulse. No cardiac thrill present. Regular rate and rhythm. No murmurs, gallops, rubs or clicks present. PULSES: Carotid arteries: Normal pulses bilaterally without bruits. Palmar arteries: Radial pulses 1-2+ bilaterally Abdominal aorta: Aortic pulses normal without bruits or enlargement. Femoral arteries: 1-2+ bilaterally. No bruits present. Pedal pulses: 1-2+ bilaterally PERIPHERAL CIRCULATION: No cyanosis, clubbing, edema or varicosities present. GASTROINTESTINAL: Normal bowel sounds. Nontender without rigidity or guarding. No masses present. No hepatomegaly. Liver is nontender to palpation and spleen is nonpalpable. Digital rectal exam-not indicated for cardiovascular exam. MUSCULOSKELETAL: No kyphosis or scoliosis present. The patient is not ambulated. Able to undergo rehabilitation. SKIN: Skin turgor is normal. No rashes. NEUROLOGIC: Grossly oriented to person, place and time. Normal mood and appropriate affect. Laboratory Laboratory Tests Test 02/01/17 08:27 02/01/17 11:13 White Blood Count 4.0 Red Blood Count 4.48 Hemoglobin 12.2 Hematocrit 36.2 Mean Corpuscular Volume 80.9 Mean Corpuscular Hemoglobin 27.3 Mean Corpuscular Hemoglobin Concent 33.7 Red Cell Distribution Width 13.4 Platelet Count 101 Mean Platelet Volume 7.8 Neutrophils (%) (Auto) 50.8 Lymphocytes (%) (Auto) 37.8 Monocytes (%) (Auto) 9.7 Eosinophils (%) (Auto) 0.8 Basophils (%) (Auto) 0.9 Neutrophils # (Auto) 2.1 Lymphocytes # (Auto) 1.5 Monocytes # (Auto) 0.4 Eosinophils # (Auto) 0.0 Basophils # (Auto) 0.0 CBC Comment DIFF FINAL Differential Comment Prothrombin Time 11.8 Prothromb Time International Ratio 1.1 Activated Partial Thromboplast Time 28.0 Urine Collection Type CLEAN CATCH Urine Color YELLOW Urine Turbidity CLEAR Urine pH 5.5 Urine Specific [place] 1.010 Urine Protein NEG Urine Glucose (UA) NEG Urine Ketones NEG Urine Occult Blood NEG Urine Nitrite NEG Urine Bilirubin NEG Urine Leukocyte Esterase NEG Urine Squamous Epithelial Cells 0-5 Microscopic Urinalysis Comment CULT NOT INDICATED Blood Urea Nitrogen 6 Creatinine 0.61 Random Glucose 94 Total Protein 7.9 Albumin 3.3 Calcium Level 8.8 Magnesium Level 1.7 Alkaline Phosphatase 77 Aspartate Amino Transf (AST/SGOT) 26 Alanine Aminotransferase (ALT/SGPT) 18 Total Bilirubin 0.8 Sodium Level 135 Potassium Level 3.3 Chloride Level 99 Carbon Dioxide Level 27.8 Anion Gap 8 Estimat Glomerular Filtration Rate 107 Total Creatine Kinase 29 Troponin I LESS THAN 0.02 LESS THAN 0.02 Result Diagram: 02/01/1782602/01/17826 Imaging EKG-mild nonspecific ST-T wave changes. Last 48 hours Impressions Knee X-Ray 02/01/17803 Signed Impressions: Service Date/Time: Wednesday, February 01, 2017 08:58 - CONCLUSION: Unremarkable examination of the left knee. Brenden Joiner MD Head CT 02/01/17803 Signed Impressions: Service Date/Time: Wednesday, February 01, 2017 08:44 - CONCLUSION: Normal examination. Brenden Joiner MD Foot X-Ray 02/01/17803 Signed Impressions: Service Date/Time: Wednesday, February 01, 2017 08:54 - CONCLUSION: A fracture is not seen. Brenden Joiner MD Chest X-Ray 02/01/17803 Signed Impressions: Service Date/Time: Wednesday, February 01, 2017 08:51 - CONCLUSION: No acute abnormality seen. Brenden Joiner MD Carotid Artery Ultrasound 02/01/17 0000 Signed Impressions: Service Date/Time: Wednesday, February 01, 2017 13:59 - CONCLUSION: 1. No significant carotid flow-limiting stenosis. 2. Antegrade vertebral artery flow bilaterally. Inder Hummel MD Assessment and Plan Assessment and Plan Problems: Transient syncope-these episodes have always occurred when the patient got up suddenly with most being at night. She is orthostatic on exam though appears hypertensive at a baseline. I suspect the etiology is orthostatic hypotension possibly exacerbated by vasovagal phenomenon. Hypertension Orthostatic hypotension Abnormal EKG-this is nonspecific. Hypokalemia-unclear etiology Obesity Possible sleep apnea Recommendations: The patient understands she needs to get up slowly and eat on a routine basis. Her blood pressure does need to be controlled and I would recommend to the primary service making sure her medications are not exacerbating this. Echocardiogram to assess ventricular and valvular function Pharmacologic SPECT nuclear to assess for significant coronary artery ischemia given the mildly abnormal EKG. Low salt/cholesterol diet with weight loss The patient was counseled against using the C Pap machine that she has bought. This places her at a high risk. She understands she needs formal testing. Continue telemetry I will not follow but be available if the workup is abnormal. All questions have been answered. Stoney Barnes MD Feb 01, 2017 16:54
[2017-02-01] MEDS ORDERED: POTASSIUM CHLORIDE 20 MEQ CONTROLLED RELEASE TAB PO ONE (17:00)
[2017-02-01] MEDS: IBUPROFEN 600 MG TAB PO PRN (17:06)
[2017-02-01] MEDS ORDERED: ENALAPRILAT 1.25 MG/ML VIAL IV PUSH PRN (17:30)
[2017-02-01] MEDS ORDERED: NIFEdipine 30 MG SUSTAINED RELEASE TAB PO ONE (17:30)
[2017-02-01] MEDS: risperiDONE 1 MG TAB PO SCH (22:13)
[2017-02-01] MEDS: SODIUM CHLORIDE 0.9% FLUSH 10 ML FLUSH IV FLUSH SCH (22:14)
[2017-02-01] MEDS: GABAPENTIN 300 MG CAP PO SCH (22:14)
[2017-02-02] MEDS: IBUPROFEN 600 MG TAB PO PRN ×3 (00:39→15:24)
[2017-02-02 00:44] VITALS: BP 142/92; PULSE 75; RESP 16; TEMP 97.9; O2SAT 97
[2017-02-02 04:27] VITALS: BP 147/89; PULSE 76; RESP 18; TEMP 98; O2SAT 96
[2017-02-02 07:02] LABS: AUTOMATED NEUTROPHIL # 1.5 TH/MM3 (1.8-7.7); BASOPHIL % 0.6 % (0.0-2.0); EOSINOPHIL % 1.2 % (0.0-4.0); HEMATOCRIT 34.3 % (35.0-46.0); LYMPH % 42.3 % (9.0-44.0); LYMPHOCYTE # 1.3 TH/MM3 (1.0-4.8); MEAN CELL VOLUME 81.2 FL (80.0-100.0); MEAN CORPUSCULAR HEMOGLOBIN 26.7 PG (27.0-34.0); MEAN CORPUSCULAR HGB CONC 32.9 % (32.0-36.0); MONO % 12.8 % (0.0-8.0); NEUT % 43.1 % (16.0-70.0); PLATELET COUNT 97 TH/MM3 (150-450); RED BLOOD COUNT 4.23 MIL/MM3 (4.00-5.30); RED CELL DISTRIBUTION WIDTH 13.5 % (11.6-17.2); WHITE BLOOD COUNT 3.2 TH/MM3 (4.0-11.0)
[2017-02-02 07:06] LABS: POTASSIUM 3.4 MEQ/L (3.5-5.1)
[2017-02-02 07:09] LABS: BICARBONATE 29.6 MEQ/L (21.0-32.0)
[2017-02-02 07:17] LABS: HEMO FLAGS AUTO DIFF
[2017-02-02 08:00] VITALS: BP 158/99; PULSE 68; PULSE 71; RESP 18; TEMP 97; O2SAT 96
[2017-02-02] MEDS: GABAPENTIN 300 MG CAP PO SCH ×2 (08:10→23:06)
[2017-02-02 08:23] LABS: PLATELET ESTIMATE SMEAR LOW (NORMAL); PLATELET MORPHOLOGY NORMAL (NORMAL); SCAN/DIFF AUTO DIFF CONFIRMED
[2017-02-02] MEDS ORDERED: VIST50CA PO (08:39)
[2017-02-02] MEDS ORDERED: RISP3TAB2 PO (08:39)
[2017-02-02] MEDS ORDERED: TRAZ300T2 PO (08:40)
[2017-02-02] MEDS: SODIUM CHLORIDE 0.9% FLUSH 10 ML FLUSH IV FLUSH SCH ×2 (09:00→23:07)
[2017-02-02] MEDS ORDERED: REGADENOSON INJ 0.4 MG/5 ML SYR IV ONE (09:42)
[2017-02-02 12:00] VITALS: BP_SYST 131; BP_SYST 138; BP_SYST 171; BP_DIAS 104; BP_DIAS 111; BP_DIAS 97; PULSE 68; RESP 18; TEMP 97.2; O2SAT 96
[2017-02-02] MEDS ORDERED: POTASSIUM CHLORIDE 10 MEQ CONTROLLED RELEASE TAB PO ONE (14:00)
--- NOTE | 2017-02-02 14:15 | HHI.PR ---
Subjective Remarks states has some chest tightness denies sob bp with improved control. Objective Vitals Vital Signs Date Time Temp Pulse Resp B/P (MAP) Pulse Ox O2 Delivery O2 Flow Rate FiO2 02/02/17 12:00 97.2 68 18 171/111 (131) 96 138/104 (115) 131/97 (108) 02/02/17 08:00 97.0 71 18 158/99 (118) 96 02/02/17 04:27 98.0 76 18 147/89 (108) 96 02/02/17 00:44 97.9 75 16 142/92 (109) 97 02/01/17 21:33 97.1 67 16 166/112 (130) 96 141/99 (113) 125/104 (111) 02/01/17 21:00 65 02/01/17 17:58 98.3 72 18 184/108 (133) 93 180/116 (137) 162/108 (126) I/O 02/01/17 02/01/17 02/01/17 02/02/17 02/02/17 02/02/17 07:00 15:00 23:00 07:00 15:00 23:00 Intake Total 2000 ml Balance 2000 ml Intake Oral 1000 ml IV Total 1000 ml # Voids 1 3 # Bowel Movements 0 Result Diagram: 02/02/1715 02/02/17 0515 Imaging Last Impressions Knee X-Ray 02/01/17803 Signed Impressions: Service Date/Time: Wednesday, February 01, 2017 08:58 - CONCLUSION: Unremarkable examination of the left knee. Brenden Joiner MD Head CT 02/01/17803 Signed Impressions: Service Date/Time: Wednesday, February 01, 2017 08:44 - CONCLUSION: Normal examination. Brenden Joiner MD Foot X-Ray 02/01/17803 Signed Impressions: Service Date/Time: Wednesday, February 01, 2017 08:54 - CONCLUSION: A fracture is not seen. Brenden Joiner MD Chest X-Ray 02/01/17803 Signed Impressions: Service Date/Time: Wednesday, February 01, 2017 08:51 - CONCLUSION: No acute abnormality seen. Brenden Joiner MD Carotid Artery Ultrasound 02/01/17 0000 Signed Impressions: Service Date/Time: Wednesday, February 01, 2017 13:59 - CONCLUSION: 1. No significant carotid flow-limiting stenosis. 2. Antegrade vertebral artery flow bilaterally. Inder Hummel MD Objective Remarks AAOx3 NAD Clear lungs Medications and IVs Current Medications Medications (Trade) Dose Ordered Sig/Abbi Route Start Time Stop Time Status Last Admin (NS Flush) 2 ml UNSCH PRN IV FLUSH 02/01/17 11:15 (NS Flush) 2 ml BID IV FLUSH 02/01/17 21:00 02/02/17 09:00 (Neurontin) 300 mg BID PO 02/01/17 21:00 02/02/17 08:10 (risperDAL) 3 mg HS PO 02/01/17 21:00 02/01/17 22:13 (Motrin) 600 mg Q8H PRN PO 02/01/17 17:00 02/02/17 08:10 (Vasotec Inj) 1.25 mg Q6H PRN IV PUSH 02/01/17 17:30 A/P Problem List: (1) Syncope ICD Code: R55 - Syncope and collapse Status: Acute (2) Chest pain ICD Code: R07.9 - Chest pain, unspecified (3) Uncontrolled hypertension ICD Code: I10 - Essential (primary) hypertension (4) Right foot pain ICD Code: M79.671 - Pain in right foot (5) Bipolar 1 disorder ICD Code: F31.9 - Bipolar disorder, unspecified (6) Depression ICD Code: F32.9 - Major depressive disorder, single episode, unspecified Assessment and Plan Syncopal episodes, recurrent CT the brain does not indicate any acute abnormality Carotid ultrasound did not indicate any acute abnormality Likely secondary to orthostatic hypotension To the echocardiogram ordered, reports pending. No evidence on telemetry, continue to monitor Urology consultation appreciated. Conditions appreciated. Nuclear stress test recommended given mild abnormal EKG. Hypertension, uncontrolled BP very elevated on admission. Will start the patient on Nifedipine Right foot pain secondary to fall X-rays do not indicate any acute fracture Continue elevation, ice, ibuprofen Bipolar, anxiety, depression, posttraumatic stress disorder Continue gabapentin and Risperdal, nursing staff to obtain accurate dosage of Geodon The patient continues to be orthostatic then I will consult psychiatry to review the patient's medications and adjust appropriately to the ones that have less orthostatic effect. Orthostatic hypotension Could possibly being induced by psych medications. Will start on CCB since patient hypertensive. DVT prevention sequential compression devices Discharge Planning still with orthostatic hypotension and hypertension. Problem Qualifiers (1) Syncope: Qualified Codes: R55 - Syncope and collapse Renaldo Oconnell MD Feb 02, 2017 14:15
--- NOTE | 2017-02-02 14:30 | RADRPT ---
EXAM DATE/TIME: 02/02/2017 12:18 [place] COMPARISON: MYOCARDIAL PERF PHARM SPECT, GATED W/EF, May 21, 2013, 11:45. INDICATIONS : Syncopal episodes. Coronary artery disease. DOSE: 26.8 mCi Tc99m Myoview at stress. 8.7 mCi Tc99m Myoview at rest. 0.4 mg Lexiscan STRESS SYMPTOMS: Dyspnea and chest tightness. EJECTION FRACTION: 48% MEDICAL HISTORY : Hypertension. SURGICAL HISTORY : Hysterectomy. ENCOUNTER: Initial ACUITY: 1 day PAIN SCALE: 0/10 LOCATION: chest TECHNIQUE: The patient underwent pharmacologic stress with infusion of prescribed dose. Continuous ECG tracing was monitored during stress. Gated SPECT imaging was performed after stress and conventional SPECT i maging was performed at rest. The examination was performed on a SPECT/CT scanner, both attenuation and non-corrected datasets were reviewed. FINDINGS: DISTRIBUTION: The maximum perfused segment at stress is balance between the septum and anterolateral wall. PERFUSION STUDY: The pattern of perfusion at stress is within normal limits. GATED STUDY: The ventricular cavity appears dilated. The ejection fraction is mildly decreased at 48%. CONCLUSION: 1. Decreased ejection fraction of 48%. 2. No reversible perfusion defect to suggest stress induced myocardial ischemia identified. RISK CATEGORY: Intermediate (1-3% Annual Mortality Rate) Stalin Leonard MD on February 02, 2017 at 14:26 Board Certified Radiologist. This report was verified electronically.
[2017-02-02] MEDS: NIFEdipine 30 MG SUSTAINED RELEASE TAB PO SCH (15:24)
--- NOTE | 2017-02-02 16:37 | ECHRPT ---
Indication: syncope CONCLUSIONS Normal left ventricular size. Wall thickness is normal. The left ventricular systolic function is low normal with an estimated ejection fraction of 50%. BP: / HR: Rhythm: Sinus MEASUREMENTS (Male / Female) Normal Values Technical Quality:Fair 2D ECHO LV Diastolic Diameter PLAX 4.8 cm 4.2 - 5.9 / 3.9 - 5.3 cm LV Systolic Diameter PLAX 3.7 cm IVS Diastolic Thickness 1.2 cm 0.6 - 1.0 / 0.6 - 0.9 cm LVPW Diastolic Thickness 1.0 cm 0.6 - 1.0 / 0.6 - 0.9 cm LV Relative Wall Thickness 0.5 RV Internal Dim ED PLAX 2.4 cm M-MODE Aortic Root Diameter MM 3.3 cm AV Cusp Separation MM 2.3 cm DOPPLER Mitral E Point Velocity 59.7 cm/s Mitral A Point Velocity 63.2 cm/s Mitral E to A Ratio 0.9 TR Peak Velocity 223.0 cm/s TR Peak Gradient 19.9 mmHg FINDINGS LEFT VENTRICLE Normal left ventricular size. Wall thickness is normal. The left ventricular systolic function is low normal with an estimated ejection fraction of 50%. RIGHT VENTRICLE Normal right ventricular size and systolic function. LEFT ATRIUM The left atrial size is normal. RIGHT ATRIUM The right atrial size is normal. ATRIAL SEPTUM Normal atrial septal thickness without atrial level shunting by limited color doppler interrogation. AORTA The aortic root and proximal ascending aorta are normal in size on limited imaging. MITRAL VALVE Structurally normal mitral valve. No mitral valve stenosis or regurgitation. AORTIC VALVE Trileaflet aortic valve. No aortic valve stenosis or regurgitation. TRICUSPID VALVE Structurally normal tricuspid valve. No tricuspid valve stenosis or regurgitation. PULMONARY VALVE The pulmonary valve is not well visualized. VESSELS The inferior vena cava is normal in size. PERICARDIUM No pericardial effusion. Luis Hatfield MD, FACC (Electronically Signed) Final Date:02 February 2017 16:36
[2017-02-02 18:00] VITALS: BP_SYST 138; BP_SYST 155; BP_SYST 183; BP_DIAS 100; BP_DIAS 90; PULSE 72; RESP 18; TEMP 96.4; O2SAT 98
[2017-02-02 20:00] VITALS: PULSE 75
[2017-02-02] MEDS: risperiDONE 1 MG TAB PO SCH (23:06)
[2017-02-03] VITALS: BP 107/65; PULSE 73; RESP 18; TEMP 97.3; O2SAT 96
[2017-02-03] MEDS: ZIPRASIDONE HCL 60 MG CAP PO SCH ×2 (00:25→08:35)
[2017-02-03 04:44] VITALS: BP 140/95; PULSE 73; RESP 16; TEMP 98.4; O2SAT 96
[2017-02-03 08:00] VITALS: BP_SYST 142; BP_SYST 146; BP_DIAS 100; BP_DIAS 108; PULSE 71; PULSE 81; RESP 17; TEMP 97.4; O2SAT 96
[2017-02-03] MEDS: GABAPENTIN 300 MG CAP PO SCH (08:35)
[2017-02-03] MEDS: NIFEdipine 30 MG SUSTAINED RELEASE TAB PO SCH (08:35)
[2017-02-03] MEDS: SODIUM CHLORIDE 0.9% FLUSH 10 ML FLUSH IV FLUSH SCH (09:00)
[2017-02-03] MEDS ORDERED: NIFE30TA8 PO (14:51)
--- NOTE | 2017-02-03 14:52 | HHI.DCPOC ---
Discharge Care Plan Diagnosis: (1) Orthostatic hypotension (2) Uncontrolled hypertension (3) Syncope (4) Depression (5) Chest pain (6) Right foot pain (7) Bipolar 1 disorder Goals to Promote Your Health * To prevent worsening of your condition and complications * To maintain your health at the optimal level Directions to Meet Your Goals Take your medications as prescribed Follow your dietary instruction Follow activity as directed Keep your appointments as scheduled Take your immunizations and boosters as scheduled If your symptoms worsen call your PCP, if no PCP go to Urgent Care Center or Emergency Room Smoking is Dangerous to Your Health. Avoid second hand smoke Call the 24-hour hour crisis hotline for domestic abuse at Renaldo Oconnell MD Feb 03, 2017 14:52
--- NOTE | 2017-02-03 15:02 | HHI.DS ---
Discharge Summary Admission Date Feb 01, 2017 at 09:41 Discharge Date: Feb 03, 2017 Admitting Diagnosis syncope (1) Syncope ICD Code: R55 - Syncope and collapse Diagnosis: Principal Status: Acute (2) Chest pain ICD Code: R07.9 - Chest pain, unspecified Diagnosis: Principal (3) Uncontrolled hypertension ICD Code: I10 - Essential (primary) hypertension Diagnosis: Principal (4) Right foot pain ICD Code: M79.671 - Pain in right foot Diagnosis: Principal (5) Bipolar 1 disorder ICD Code: F31.9 - Bipolar disorder, unspecified Diagnosis: Secondary (6) Depression ICD Code: F32.9 - Major depressive disorder, single episode, unspecified (7) Orthostatic hypotension ICD Code: I95.1 - Orthostatic hypotension Diagnosis: Principal (8) Hypokalemia ICD Code: E87.6 - Hypokalemia Procedures none Brief History - From Admission 41-year-old female with known history of hypertension, anxiety, depression, bipolar, herniated disc of the lumbar spine, posttraumatic stress disorder who presented to hospital because of syncopal episodes. Patient states for the last 2 months she has been having episodes of syncope and passing out. She states that it usually happens whenever she stands up and walks for approximately 10 feet that she develops lightheadedness dizziness and blacks out. Denies any loss of bowel or bladder control. Patient states that she is usually out for a few seconds and she has not confused when she wakes up. Patient states that she was standing up in the kitchen today and she had the same episode. This time she fell down hitting her right foot and she has significant pain in her foot so she came to the hospital for evaluation. Patient had workup done emergency department and there was no obvious etiology of the patient's syncope is recommended by the emergency physician the patient be observed in the hospital for further evaluation. Subsequently the patient has been complaining of a sharp left-sided chest pain without any radiation, nausea, vomiting, diaphoresis. It is reproducible on palpation over on the left side of the rib. She denies any shortness of breath or dyspnea. Patient did have orthostatic vitals performed which did show blood pressure while laying down 181/116 and when she stood up it was 143/103.. Patient does have history of hypertension which she has not taken any blood pressure medication over 2 years because she has not had a prescription for has not followed up with any primary medical doctor. She used to be on lisinopril. CBC/BMP: 02/02/17 0515 02/02/17 0515 Significant Findings Laboratory Tests Test 02/01/17 08:27 02/01/17 11:13 02/01/17 17:18 02/02/17 05:15 Platelet Count 101 TH/MM3 (150-450) 97 TH/MM3 (150-450) Monocytes (%) (Auto) 9.7 % (0.0-8.0) 12.8 % (0.0-8.0) Prothrombin Time 11.8 SEC (9.8-11.6) Blood Urea Nitrogen 6 MG/DL (7-18) Albumin 3.3 GM/DL (3.4-5.0) Sodium Level 135 MEQ/L (136-145) Potassium Level 3.3 MEQ/L (3.5-5.1) 3.4 MEQ/L (3.5-5.1) Troponin I LESS THAN 0.02 NG/ML LESS THAN 0.02 NG/ML LESS THAN 0.02 NG/ML White Blood Count 3.2 TH/MM3 (4.0-11.0) Hemoglobin 11.3 GM/DL (11.6-15.3) Hematocrit 34.3 % (35.0-46.0) Mean Corpuscular Hemoglobin 26.7 PG (27.0-34.0) Neutrophils # (Auto) 1.5 TH/MM3 (1.8-7.7) Platelet Estimate LOW (NORMAL) Imaging Last Impressions Myocardial Perfusion Scan Nuc Med 02/02/17 0000 Signed Impressions: Service Date/Time: Thursday, February 02, 2017 12:18 - CONCLUSION: 1. Decreased ejection fraction of 48%%. 2. No reversible perfusion defect to suggest stress induced myocardial ischemia identified. RISK CATEGORY: Intermediate (1-3% % Annual Mortality Rate) Stalin Leonard MD Knee X-Ray 02/01/17 0804 Signed Impressions: Service Date/Time: Wednesday, February 01, 2017 08:58 - CONCLUSION: Unremarkable examination of the left knee. Brenden Joiner MD Head CT 02/01/17 0804 Signed Impressions: Service Date/Time: Wednesday, February 01, 2017 08:44 - CONCLUSION: Normal examination. Brenden Joiner MD Foot X-Ray 02/01/17 0804 Signed Impressions: Service Date/Time: Wednesday, February 01, 2017 08:54 - CONCLUSION: A fracture is not seen. Brenden Joiner MD Chest X-Ray 02/01/17 0804 Signed Impressions: Service Date/Time: Wednesday, February 01, 2017 08:51 - CONCLUSION: No acute abnormality seen. Brenden Joiner MD Carotid Artery Ultrasound 02/01/17 0000 Signed Impressions: Service Date/Time: Wednesday, February 01, 2017 13:59 - CONCLUSION: 1. No significant carotid flow-limiting stenosis. 2. Antegrade vertebral artery flow bilaterally. Inder Hummel MD PE at Discharge AAOx3 NAD Clear lungs Pt update on day of discharge The patient denies chest pain or shortness of breath. Denies dizziness lying down or when standing up. Patient also denies chest pain or shortness of breath. Hospital Course The patient was placed under out patient observation in the medical floor, monitor on telemetry. CT scan admission of the brain did not show any acute abnormality. Carotid ultrasound was negative. Orthostatic vitals were positive for significant orthostasis. The patient however was started on nifedipine which helped with the orthostatic hypotension. The patient was also given IV fluids. 2-D echocardiogram showed a low normal systolic function with an EF of 50%. No events were reported on telemetry during hospital physician. Cardiology consulted, Dr. Barnes evaluate the patient and recommended stress testing which was negative for ischemia. Patient's blood pressure was initially uncontrolled and the patient also nifedipine with successful control his blood pressure prior to being discharged. Patient had some right foot pain after syncopal episode. Extensive imaging done in the ER ruled out fractures. Ice, ibuprofen and elevation was recommended and instituted during hospitalization. Pending and Risperdal was continued for the patient's psychiatric problems which seem to be stable during this hospitalization. The patient was placed on sequential compression devices for DVT prophylaxis. Pt Condition on Discharge: Stable Discharge Disposition: Discharge Home Discharge Time: <= 30 minutes Discharge Instructions DIET: Follow Instructions for: Heart Healthy Diet Activities you can perform: Regular-No Restrictions Follow up Referrals: Cardiology - 2 Weeks with Stoney Barnes MD PCP Follow-up - 1 Week New Medications: Nifedipine ER 24 HR (Nifedipine ER 24 HR) 30 Mg Tab 30 MG PO DAILY for Blood Pressure Management, #30 TAB Continued Medications: Gabapentin (Gabapentin) 300 Mg Cap 300 MG PO BID, #60 CAP 0 Refills Hydroxyzine Pamoate (Vistaril) 50 Mg Cap 50 MG PO HS, CAP 0 Refills Risperidone (Risperdal) 3 Mg Tab 3 MG PO HS, #30 TAB 0 Refills Trazodone (Trazodone) 300 Mg Tab 300 MG PO HS for Control Depression, #30 TAB 0 Refills Ziprasidone (Geodon) Unknown Strength Cap 60 MG PO BID, #60 CAP 0 Refills NS Renaldo Oconnell MD Feb 03, 2017 15:02
== END 2017-02-03 15:22 | disposition home or self-care (01) ==
LOC: PHED 07:46 → PHEDA 09:41 → PH3B 10:54
PROVIDERS: ADMIT Hospitalist; ATTEND Hospitalist
DX: I95.1 Orthostatic hypotension (principal); R07.9 Chest pain, unspecified; M79.671 Pain in right foot; I10 Essential (primary) hypertension; M51.26 Other intervertebral disc displacement, lumbar region; F31.9 Bipolar disorder, unspecified; F43.10 Post-traumatic stress disorder, unspecified; R94.31 Abnormal electrocardiogram [ECG] [EKG]; W19.XXXA Unspecified fall, initial encounter
CPT/HCPCS: 70450; 71010; 73564; 73630; 78452; 80048; 80053; 81001; 82550; 83735; 84484; 85025; 85610; 85730; 93005; 93017; 93306; 93880; 99285; A9502; G0378; J2785; J7030

== ENCOUNTER 2018-01-10 04:15 | Inpatient (IN) ==
[2018-01-10] MEDS ORDERED: Sod Chloride 0.9% Inj 1,000 ML IV.SIG ONE (04:25)
[2018-01-10 05:03] LABS: Baso % (Auto) 0.7 % (0.0-2.0); Eos % (Auto) 0.2 % (0.0-4.0); Hematocrit 35.4 % (35.0-46.0); Hemoglobin 11.9 gm/dL (11.6-15.3); Lymph # (Auto) 1.1 th/mm3 (1.0-4.8); Lymph % (Auto) 31.9 % (9.0-44.0); Mean Corpuscular HGB Conc 33.6 % (32.0-36.0); Mean Corpuscular Hemoglobin 28.2 pg (27.0-34.0); Mean Platelet Volume 8.8 fL (7.0-11.0); Mono # (Auto) 0.4 th/mm3 (0.0-0.9); Mono % (Auto) 12.9 % (0.0-8.0); Neut # (Auto) 1.8 th/mm3 (1.8-7.7); Neut % (Auto) 54.3 % (16.0-70.0); Platelet Count 98 th/mm3 (150-450); Red Blood Count 4.21 mil/mm3 (4.00-5.30); Red Cell Distribution Width 13.3 % (11.6-17.2); White Blood Count 3.3 th/mm3 (4.0-11.0)
--- NOTE | 2018-01-10 05:30 | ED ---
HPI General Chief complaint: Overdose Stated complaint: Possible Overdose Time Seen by Provider: 01/10/18 04:24 Source: patient Mode of arrival: ambulatory Limitations: no limitations History of Present Illness HPI narrative: Is a 42-year-old woman who presents to the emergency department under a Merritt act following reported overdose. Patient reports that over the past several hours she handful of pills, and assortment of trazodone, gabapentin , hydroxyzine, and ziprasidone. Patient states that she was trying to go to sleep and not wake up. Her apparently found her and she told him what happened and he patient states over the past several weeks she has had increasing depression. She said suicidal thoughts, that were worse tonight. She drinks regularly, drank earlier today but denies alcohol use this evening. Related Data Home Medications Medication Instructions Recorded Confirmed albuterol sulfate [Ventolin HFA] 1 puff INHALATION Q4-6H PRN 01/02/18 01/10/18 gabapentin 1 tab PO TID 01/02/18 01/10/18 hydroxyzine HCl 1 tab PO TID 01/02/18 01/10/18 trazodone 1 tab PO TID 01/02/18 01/10/18 Previous Rx's Medication Instructions Recorded naproxen [EC-Naprosyn] 500 mg PO BID #14 tab 01/02/18 Allergies Allergy/AdvReac Type Severity Reaction Status Date / Time No Known Allergies Allergy unknown Uncoded 01/02/18 06:37 Review of Systems ROS: all other systems reviewed are negative [facility] Medical History Medical History History of anxiety (Acute) History of depression (Acute) History of hypertension (Acute) History of shortness of breath (Acute) Surgical History Surgical History Hx of section (Acute) Hx of laparoscopy (Acute) Social History Social History Substance History: No History of Abuse Second Hand Smoke Exposure: Yes Smoking Status: Never smoker How Often Do You Have a Drink Containing Alcohol: 4 or more times a week Recent Travel in [facility] within the Last 8 Weeks: No Recent Out of Country Travel within the Last 8 Weeks: No Immunization History Tetanus Immunization: Unsure Hx Influenza Vaccine This Season: No Exam Narrative Exam Narrative: GENERAL: 42-year-old woman, little bit sedated, nontoxic. SKIN: Focused skin assessment warm/dry. HEAD: Atraumatic. Normocephalic. EYES: Pupils equal and round. No scleral icterus. No injection or drainage. ENT: No nasal bleeding or discharge. Mucous membranes pink and moist. NECK: Trachea midline. No JVD. CARDIOVASCULAR: Regular rate and rhythm. No murmur appreciated. RESPIRATORY: No accessory muscle use. Clear to auscultation. Breath sounds equal bilaterally. GASTROINTESTINAL: Abdomen soft, non-tender, nondistended. Hepatic and splenic margins not palpable. MUSCULOSKELETAL: No obvious deformities. No clubbing. No cyanosis. No edema. NEUROLOGICAL: A little bit sedated.. No obvious cranial nerve deficits. Motor grossly within normal limits. Normal speech. PSYCHIATRIC: Appropriate mood and affect; insight and judgment normal. Course Initial Documented Vital Signs Temperature 98.3 F 01/10/18 04:33 Pulse Rate 73 01/10/18 04:33 Respiratory Rate 16 01/10/18 04:33 Blood Pressure 162/83 H 01/10/18 04:33 Pulse Oximetry 94 L 01/10/18 04:33 Last Documented Vital Signs Temperature 98.3 F 01/10/18 04:33 Pulse Rate 73 01/10/18 07:07 Respiratory Rate 18 01/10/18 07:07 Blood Pressure 104/58 L 01/10/18 07:07 Pulse Oximetry 96 01/10/18 07:07 Sign Out Sign Out Data: Patient Sign Out occurred on 01/10/18 at 07:25. Patient's care was discussed, and care was transferred from Cecil Gerard MD to Greg Miller MD. Sign Out Comment: Is a 42-year-old woman with multidrug overdose, antipsychotic , Neurontin, hydroxyzine. Will need repeat EKG, repeat assessment, is stable, clear for psych. Else admit. Last updated by Cecil Gerard MD at 01/10/18 07:09 Post-Handoff Eval: Patient seen and examined by me post sign out, EKG was repeated which shows normal intervals, sinus rhythm, a singular premature ventricular contraction, and nonspecific T-wave flattening. Overall there is no change from the EKG which was done at 09 09. Patient was discussed again with poison control by my nursing staff, there is no indication for further diagnostic testing or workup. My opinion patient is hemodynamically stable medically cleared for psychiatric admission. The patient was discussed briefly with the psychiatrist and the plan is for admission to medical psych unit, I think this is appropriate as well. She is under Merritt act. I discussed with her that we are always here to help and she should come in prior to taking any overdoses in the future. Medical Decision Making MDM Narrative Medical decision making narrative: Is a 42-year-old woman presents emerged part for evaluation status post overdose. Looks well. Will need repeat labs and monitoring in the emerged if she remains stable for 4 hours, will recommend psychiatric evaluation here. Else will admit. Medical Screen Exam Complete: Yes Emergency Medical Condition: Yes Lab Data Result diagrams: 01/10/18 04:30 01/10/18 04:30 Lab Results 01/10/18 01/10/18 01/10/18 Range/Units 04:30 04:30 04:30 WBC 3.3 L (4.0-11.0) th/mm3 RBC 4.21 (4.00-5.30) mil/mm3 Hgb 11.9 (11.6-15.3) gm/dL Hct 35.4 (35.0-46.0) % MCV 84.0 (80.0-100.0) fL MCH 28.2 (27.0-34.0) pg MCHC 33.6 (32.0-36.0) % RDW 13.3 (11.6-17.2) % Plt Count 98 L (150-450) th/mm3 MPV 8.8 (7.0-11.0) fL Prelim Diff (Auto) Slide review pending Neut % (Auto) 54.3 (16.0-70.0) % Lymph % (Auto) 31.9 (9.0-44.0) % [place] % (Auto) 12.9 H (0.0-8.0) % Eos % (Auto) 0.2 (0.0-4.0) % Baso % (Auto) 0.7 (0.0-2.0) % Neut # (Auto) 1.8 (1.8-7.7) th/mm3 Lymph # (Auto) 1.1 (1.0-4.8) th/mm3 [place] # (Auto) 0.4 (0.0-0.9) th/mm3 Eos # (Auto) 0.0 (0.0-0.4) th/mm3 Baso # (Auto) 0.0 (0.0-0.2) th/mm3 WBC Differential . Diff Scan Auto diff confirmed Differential Comment . Platelet Estimate Low L (Normal) Platelet Morphology Normal (Normal) Pappenheimer Bodies Present H (None) Ovalocytes 1+ H (None) [place] Bodies Present H (None) Keratocytes Occ H (None) Sodium 144 (136-145) meq/L Potassium 3.4 L (3.5-5.1) meq/L Chloride 102 (98-107) meq/L Carbon Dioxide 29.5 (21.0-32.0) meq/L Anion Gap 13 (5-15) meq/L BUN 5 L (7-18) mg/dL Creatinine 0.68 (0.50-1.00) mg/dL Estimated GFR Greater than 89 (>89) mL/min Random Glucose 114 H (74-106) mg/dL Calcium 8.0 L (8.5-10.1) mg/dL Total Bilirubin 0.4 (0.2-1.0) mg/dL AST 46 H (15-37) U/L ALT 26 (10-53) U/L Alkaline Phosphatase 96 (45-117) U/L Total Protein 7.3 (6.4-8.2) g/dL Albumin 2.9 L (3.4-5.0) g/dL Salicylates Less than 1.7 L (2.8-20.0) mg/dL Acetaminophen Less than 2.0 L (10.0-30.0) mcg/mL Serum Alcohol 50 H (0-5) mg/dL ECG Data Attestation: I personally reviewed and interpreted this ECG as follows: Interpretation: Normal sinus rhythm at a rate of 71, normal axis computer is interpreting a QTC of 345 but she appears to have a U wave that may be drawing this out some. No definite evidence of acute ischemia. Discharge Plan Discharge Disposition Patient Disposition: 30 Still Patient Discharge Condition Condition: Stable Discharge Details Diagnosis: Drug overdose Physicians Team ED Provider: Greg Miller Primary Care Provider: Primary Care Melissa Higuera Rxs /Orders / Referrals /Forms Prescriptions: No Action trazodone 50 mg Tablet 1 tab PO TID RF: 0 hydroxyzine HCl 25 mg Tablet 1 tab PO TID RF: 0 gabapentin 100 mg Capsule 1 tab PO TID RF: 0 albuterol sulfate [Ventolin HFA] 90 mcg/actuation Hfa Aerosol Inhaler 1 puff INHALATION Q4-6H PRN (Reason: Shortness Of Breath Or Wheezing) RF: 0 naproxen [EC-Naprosyn] 500 mg tablet,delayed release (DR/EC) 500 mg PO BID Qty: 14 RF: 0 Discharge Interventions Interventions: Vital Signs Last Done: 01/10/18 07:07 Status ED Status: With Doctor
[2018-01-10 05:32] LABS: Alanine Aminotransferase 26 U/L (10-53); Albumin 2.9 g/dL (3.4-5.0); Anion Gap 13 meq/L (5-15); Aspartate Aminotransferase 46 U/L (15-37); Blood Urea Nitrogen 5 mg/dL (7-18); Carbon Dioxide 29.5 meq/L (21.0-32.0); Chloride 102 meq/L (98-107); Glomerular Filtration Rate Greater Than 89 mL/min (>89); Glucose,Random 114 mg/dL (74-106); Potassium 3.4 meq/L (3.5-5.1); Sodium 144 meq/L (136-145)
[2018-01-10 05:34] LABS: Alkaline Phosphatase 96 U/L (45-117); Total Protein 7.3 g/dL (6.4-8.2)
[2018-01-10 05:50] LABS: Alcohol 50 mg/dL (0-5)
[2018-01-10 06:17] LABS: Howell-Jolly Bodies Present; Ovalocytes 1+; Pappenheimer Bodies Present; Platelet Morphology Normal (Normal)
[2018-01-10] MEDS ORDERED: Haloperidol Inj 5 MG/ML Ampul IV.PUSH PRN (08:12)
[2018-01-10] MEDS ORDERED: Bisacodyl 10 MG Supp RECTAL PRN (08:12)
[2018-01-10] MEDS ORDERED: Aluminum/Magnesium/Simethacone Susp 30 ML UDC PO PRN (08:12)
[2018-01-10] MEDS: Senna/Docusate Sodium 8.6/50 MG Tablet PO SCH ×2 (10:13→22:04)
--- NOTE | 2018-01-10 13:15 | P.HPPSY ---
Provisional Diagnosis Admission Date: January 10, 2018 08:12 [place] I.: Major depressive disorder recurrent, severe without psychosis, chronic PTSD, anxiety, alcohol use disorder Competence Certification of Person's Competence To Provide Express and Informed Consent I have personally examined Magi Bass, a person being served at [facility] on, January 10, 2018 1302. Express and informed consent means consent voluntarily given in writing, by a competent person, after sufficient explanation and disclosure of the subject matter involved to enable the person to make a knowing and willful decision without any element of force, fraud, deceit, duress, or other form of constraint or coercion. This person is 18 years of age or older, is not now known to be incompetent to consent to treatment with a guardian advocate, and does not have a health care surrogate or proxy currently making medical treatment decisions. I have found this person to be one of the following: [] Competent to provide express and informed consent, as defined above, for voluntary admission to this facility and is competent to provide express and informed consent for treatment. He/she has the consistent capacity to make well reasoned, willful, and knowing decisions concerning his or her medical or mental health treatment. The person fully and consistently understands the purpose of the admission for examination/placement and is fully capable of personally exercising all rights assured [place] Incompetent to provide express and informed consent to voluntary admission, and this is incompetent to provide express and informed consent to treatment. The person must be transferred to involuntary status and a petition for a guardian advocate filed with the Circuit Court. [x] Refusing to provide express and informed consent to voluntary admission but is competent to provide express and informed consent for treatment. The person must be discharged or transferred to involuntary status. Form shall be completed within 24 hours of a person's arrival at the receiving facility and filed in the clinical record of each person: 1. Admitted on a voluntary basis 2. Permitted to provide express and informed consent to his/her own treatment 3. Allowed to transfer from involuntary to voluntary status 4. Prior to permitting a person to consent to his or her own treatment after having been previously found incompetent to consent to treatment. History of Present Illness Capacity: Has capacity History of Present Illness: The patient is a 42-year-old woman, domiciled in [place] with her , she has 6 kids, unemployed, with a psychiatric history of alcohol use disorder, major depressive disorder, recurrent, PTSD, anxiety, she is on trazodone 100 mg, hydroxyzine 50 mg, Geodon 20 mg twice daily, gabapentin 800 mg twice, outpatient in [facility], multiple suicidal attempts, self cutting behavior without SI, medical history hypertension, who presents to the emergency department under a [place] act following reported overdose. Patient reports that over the past several hours she handful of pills, and assortment of trazodone, gabapentin, hydroxyzine, and ziprasidone. Patient states that she was trying to go to sleep and not wake up. Her apparently found her and she told him what happened and he patient states over the past several weeks she has had increasing depression, she says that her mother in June 07, she says that she does not have any mind clarity, that her health mental health are declining significantly, that she does not have a reason to live. She reports poor sleep, helplessness, hopeless, generalized pessimism, poor sleep at night she said suicidal thoughts, that were worse tonight. She drinks regularly, drank earlier today but denies alcohol use this evening. She denies the use of illegal drugs. PPHx:sychiatric history of alcohol use disorder, major depressive disorder, recurrent, PTSD, anxiety, she is on trazodone 100 mg, hydroxyzine 50 mg, Geodon 20 mg twice daily, gabapentin 800 mg twice, outpatient in [facility], multiple suicidal attempts, self cutting behavior without SI PMHx: Hypertension Substance Hx: She reports daily use of alcohol, denies illegal drug Family Hx: No family psychiatric history Social Hx: The patient was born and raised in [place], she lives in [place] with her , she is a mother of 6 kids, unemployed, supported by , highest level of education is GED - Inpatient Certification I certify that the inpatient services were ordered in accordance with Medicare regulations governing the order. This includes certification that hospital inpatient services are reasonable and necessary and in the case of services not specified as inpatient-only under 42 CFR 419.22(n), that they are appropriately provided as inpatient services in accordance to with the 2-midnight benchmark under 43 CFR 412.3(e) I certify that inpatient psychiatric hospital services are medically necessary. Evaluation and treatment and/or diagnostic testing are expected to improve the patient's condition. The patient needs on a daily basis, active treatment furnished directly by or requiring the supervision of inpatient psychiatric facility personnel. Estimated Total Length of Stay (Days): 7 Plans for Post Hospital Care: Home Review of Systems Constitutional: Denies anorexia, Denies body ache(s), Denies chills, Denies daytime sleepiness, Denies excessive sweating, Denies fatigue, Denies fever(s), Denies headache(s), Denies increased appetite, Denies lack of energy, Denies malaise, Denies night sweats, Denies weakness, Denies weight gain, Denies weight loss, Denies other Eyes: Denies blind spots, Denies blurry vision, Denies bulging eyes, Denies change in vision, Denies double vision, Denies discharge, Denies dry eyes, Denies floaters, Denies irritation, Denies itchy eyes, Denies loss of vision, Denies pain, Denies requires corrective lenses, Denies sensitivity to light, Denies other Ears, Nose, Mouth, and Throat: Denies abnormal hearing, Denies bleeding gums, Denies bad breath, Denies change in voice, Denies dental pain, Denies difficulty swallowing, Denies dizziness, Denies dry mouth, Denies ear discharge , Denies ear pain, Denies facial pain, Denies headache(s), Denies hearing loss, Denies hoarseness, Denies lip swelling, Denies nosebleed, Denies mouth lesions, Denies mouth pain, Denies nasal congestion, Denies nasal discharge, Denies nasal obstruction, Denies nasal trauma, Denies neck lump, Denies neck pain, Denies nose pain, Denies pain with swallowing, Denies poor balance, Denies post nasal drip, Denies ringing in the ears, Denies sinus pain, Denies sinus pressure , Denies sore throat, Denies throat swelling, Denies tongue swelling, Denies other Cardiovascular: Denies chest pain, Denies chest pain at rest, Denies chest pain with activity, Denies excessive sweating, Denies fainting, Denies fast heart rate, Denies foot swelling, Denies generalized swelling, Denies irregular heart rhythm, Denies leg pain with activity, Denies leg sores, Denies leg swelling, Denies lightheadedness, Denies radiating jaw, neck or arm pain, Denies rapid, pounding, or irregular heartbeat, Denies shortness of breath, Denies shortness of breath with activity, Denies shortness of breath when lying down, Denies shortness of breath causing sudden awakening, Denies slow heart rate, Denies other Respiratory: Denies change in phlegm color, Denies chest congestion, Denies cough, Denies coughing up blood, Denies excessive phlegm production, Denies pain on inspiration, Denies pain with cough, Denies shortness of breath, Denies shortness of breath with activity, Denies snoring, Denies stridor, Denies wheezing, Denies other Gastrointestinal: Denies abdominal pain, Denies belching, Denies black, tarry stools, Denies bloating, Denies bright, red blood in stools, Denies change in bowel habits, Denies constant urge to pass stool, Denies change in stools, Denies coffee ground vomit, Denies constipation, Denies cramping, Denies difficulty swallowing, Denies excessive passing of gas, Denies feeling full early, Denies heartburn, Denies incontinent of stools, Denies loose stools, Denies nausea, Denies pain with swallowing, Denies vomiting, Denies vomiting blood, Denies other Genitourinary: Denies abnormal periods, Denies abnormal vaginal bleeding, Denies absent period, Denies bleeding between periods, Denies blood in urine, Denies difficulty starting urination, Denies difficulty urinating, Denies dribbling after urination, Denies frequent nighttime urination, Denies genital itching, Denies genital lesions, Denies heavy periods, Denies hot flashes, Denies light periods, Denies nipple discharge, Denies painful intercourse, Denies painful periods, Denies painful urination, Denies pelvic pain, Denies prolapse symptoms, Denies sexual problems, Denies side pain, Denies urinary incontinence, Denies urinary urgency, Denies vaginal discharge, Denies vaginal dryness, Denies vaginal odor, Denies vaginal itching, Denies other Musculoskeletal: Denies abnormal walking, Denies back pain, Denies body aches, Denies decreased muscle mass, Denies deformity, Denies joint pain, Denies joint swelling, Denies limited joint movement, Denies loss of height, Denies muscle cramps, Denies muscle weakness, Denies neck pain, Denies numbness, Denies radiating pain into limb, Denies stiffness, Denies tingling, Denies other Skin/Breast: Denies acne, Denies bleeding lesions, Denies boil, Denies breast swelling, Denies breast skin changes, Denies breast pain, Denies breast lump, Denies change in breast shape, Denies change in hair, Denies change in skin color, Denies changing lesions, Denies dry skin, Denies excessive hair growth, Denies hair loss, Denies itching, Denies lesions, Denies nail changes, Denies new lesions, Denies nipple discharge, Denies non-healing lesions, Denies redness , Denies sensitivity to light, Denies rash, Denies skin pain, Denies skin ulcer , Denies sores, Denies stretch alvares, Denies unusual bruising, Denies wounds, Denies yellowing of the skin, Denies other Neurologic: Denies abnormal hearing, Denies abnormal movements, Denies abnormal speech, Denies abnormal walking, Denies behavioral changes, Denies burning sensations, Denies confusion, Denies dizziness, Denies fainting, Denies frequent falls, Denies headache(s), Denies lack of coordination, Denies localized weakness, Denies loss of vision, Denies memory loss, Denies numbness, Denies other visual disturbances, Denies radiating pain, Denies restless legs, Denies convulsions, Denies seizure-like activity, Denies sensory deficit, Denies tingling, Denies tingling/numbness/burning sensations, Denies tremor(s), Denies unsteadiness, Denies weakness, Denies other Psychiatric: Reports depression, Reports irritability, Reports thoughts of hurting/killing yourself [facility] - History History Provided By: Patient - Medical History Medical History: Medical History (Last Reviewed 01/10/18 @ 12:47 by Ceyc Peraza RN) History of anxiety History of depression History of hypertension History of shortness of breath - Surgical History Surgical History: Surgical History (Last Reviewed 01/10/18 @ 12:46 by Cecy Peraza RN) Hx of section Hx of laparoscopy - Tobacco History Second Hand Smoke Exposure: No Smoking Status: Never smoker - Alcohol History How Often Do You Have a Drink Containing Alcohol: 2 to 3 times a week - Substance Use History Substance History: No History of Abuse - Travel History Recent Travel in the [place] Within the Last 8 Weeks: No Recent Travel Out of the Country Within the Last 8 Weeks: No - Immunization History Tetanus Immunization: Unsure Hx Influenza Vaccine This Season: No Medications and Allergies Active Medications: Active Medications Al Hydrox/Mg Hydrox/Simethicone (Mag-Al Plus Susp Liq) 30 ml PO Q6H PRN PRN Reason: DYSPEPSIA Al Hydroxide/Mg Hydroxide (Milk Of Magnesia Liq) 30 ml PO Q12H PRN PRN Reason: Mild Constipation Bisacodyl (Dulcolax Supp) 10 mg RECTAL DAILY PRN PRN Reason: SEVERE CONSITIPATION Flumazenil (Romazecon Inj) 0.2 mg IV.PUSH Q1M PRN PRN Reason: OVERSEDATION Haloperidol Lactate (Haldol Inj) 1 mg IV.PUSH Q15M PRN PRN Reason: for severe agitation Lactulose (Lactulose Liq) 30 ml PO DAILY PRN PRN Reason: SEVERE CONSITIPATION Lorazepam (Ativan) 1 mg PO Q4H PRN PRN Reason: for CIWA 8-10 Lorazepam (Ativan Inj) 2 mg IV.PUSH Q2H PRN PRN Reason: for CIWA 11-14 Lorazepam (Ativan Inj) 2 mg IV.PUSH Q1H PRN PRN Reason: for CIWA 15-20 Lorazepam (Ativan Inj) 2 mg IV.PUSH Q15M PRN PRN Reason: for CIWA > 20 Lorazepam (Ativan Inj) 1 mg IV.PUSH Q4H PRN PRN Reason: for CIWA 8-10 Lorazepam (Ativan) 2 mg PO Q2H PRN PRN Reason: for CIWA 11-14 Senna/Docusate Sodium (Carmita-Colace) 1 tab PO BID ALIX Last Admin: 01/10/18 10:13 Dose: Not Given Sennosides (Senokot) 17.2 mg PO Q12H PRN PRN Reason: Moderate Constipation Allergies Allergy/AdvReac Type Severity Reaction Status Date / Time No Known Allergies Allergy unknown Uncoded 01/02/18 06:37 Home Medications Medication Instructions Recorded Confirmed Type albuterol sulfate [Ventolin HFA] 1 puff INHALATION Q4-6H PRN 01/02/18 01/10/18 History gabapentin 1 tab PO TID 01/02/18 01/10/18 History hydroxyzine HCl 1 tab PO TID 01/02/18 01/10/18 History trazodone 1 tab PO TID 01/02/18 01/10/18 History Results - Labs CBC & Chem 7: 01/10/18 04:30 01/10/18 04:30 Labs: Laboratory Results - last 24 hr 01/10/18 01/10/18 01/10/18 04:30 04:30 04:30 WBC 3.3 L RBC 4.21 Hgb 11.9 Hct 35.4 MCV 84.0 MCH 28.2 MCHC 33.6 RDW 13.3 Plt Count 98 L MPV 8.8 Prelim Diff (Auto) Slide review pending Neut % (Auto) 54.3 Lymph % (Auto) 31.9 [place] % (Auto) 12.9 H Eos % (Auto) 0.2 Baso % (Auto) 0.7 Neut # (Auto) 1.8 Lymph # (Auto) 1.1 [place] # (Auto) 0.4 Eos # (Auto) 0.0 Baso # (Auto) 0.0 WBC Differential . Diff Scan Auto diff confirmed Differential Comment . Platelet Estimate Low L Platelet Morphology Normal Pappenheimer Bodies Present H Ovalocytes 1+ H Byrne-[place] Bodies Present H Keratocytes Occ H Sodium 144 Potassium 3.4 L Chloride 102 Carbon Dioxide 29.5 Anion Gap 13 BUN 5 L Creatinine 0.68 Estimated GFR Greater than 89 Random Glucose 114 H Calcium 8.0 L Total Bilirubin 0.4 AST 46 H ALT 26 Alkaline Phosphatase 96 Total Protein 7.3 Albumin 2.9 L Salicylates Less than 1.7 L Acetaminophen Less than 2.0 L Serum Alcohol 50 H Exam Vital signs: Vital Signs 01/10/18 04:33 01/10/18 04:48 01/10/18 04:53 Temperature 98.3 F Pulse Rate 73 76 Respiratory Rate 16 18 Blood Pressure 162/83 H Pulse Oximetry 94 L 92 L 93 L 01/10/18 06:47 01/10/18 07:07 01/10/18 08:12 Temperature Pulse Rate 74 73 68 Respiratory Rate 16 18 18 Blood Pressure 126/67 104/58 L 154/86 H Pulse Oximetry 96 96 95 01/10/18 12:03 Temperature 98.8 F Pulse Rate 67 Respiratory Rate 18 Blood Pressure 143/86 H Pulse Oximetry Intake & Output 01/09/18 01/10/18 01/10/18 18:59 06:59 18:59 Intake Total 1000 / 1000 Balance 1000 / 1000 Weight 86.183 kg 100.1 kg Intake: IV 1000 / 1000 Other: Weight On Admission 101.1 kg Narrative: Examination is limited due to the level of lethargic, but no EPS, no tremors present - Constitutional no acute distress, mild distress - Routine HEENT Exam Head: Present: normocephalic Mental Status Examination Appearance: Appropriate Consciousness: Alert Orientation: x4 Motor Activity: Normal gait Speech: Unremarkable Language: Adequate Fund of Knowledge: Adequate Attention and Concentration: Adequate Memory: Unremarkable Mood: Sad Affect: Sad Thought Process & Associations: Intact Thought Content: Appropriate Hallucination Type: None Delusion Type: None Suicidal Ideation: Yes Suicidal Plan: No Suicidal Intention: No Homicidal Ideation: No Homicidal Plan: No Homicidal Intention: No Insight: Poor Judgment: Poor Assessment and Plan - Plan Plan: Estimated LOS: [] days On psychiatric evaluation today the patient presents quite lethargic, a little bit obtunded after overdosing with suicidal intentions. The patient reports that in the last months, especially after the of her mother in May 2017, she has been feeling quite depressed, we generally pessimism, hopelessness , helplessness, decrease energy, appetite and sleep, increased alcohol use, and having frequent suicidal thoughts to the point that yesterday she overdosed with suicidal intentions. She has a psychiatric history of depression, PTSD, multiple suicidal attempts, self cutting behavior without SI, poor impulse control, and at this moment she has an elevated risk of danger to self, continue psychiatric hospitalization for stabilization. I will not start psychotropics at the moment. But will place CIWA. Consult psychiatry for second opinion. Support, motivational psychoeducation provided Justification for Continued Inpatient Stay: Continue process of admission.
--- NOTE | 2018-01-10 13:57 | ECG ---
Date Performed: 01/10/2018 Time Performed: 04:25:41 PTAGE: 42 years EKG: Sinus rhythm LOW QRS VOLTAGE IN PRECORDIAL LEADS NONSPECIFIC T-WAVE ABNORMALITY BORDERLINE ECG PREVIOUS TRACING : 02/01/2017 08.30 Compared to previous tracing, previously seen [facility] improved. DOCTOR: Yuri Matias Interpretating Date/Time 01/10/2018 13:56:52
--- NOTE | 2018-01-10 20:33 | ECG ---
Date Performed: 01/10/2018 Time Performed: 08:30:57 PTAGE: 42 years EKG: Sinus rhythm WITH OCCASIONAL SUPRAVENTRICULAR PREMATURE COMPLEXES LOW QRS VOLTAGE IN PRECORDIAL LEADS NONSPECIFIC T-WAVE ABNORMALITY BORDERLINE ECG PREVIOUS TRACING : 01/10/2018 04.25 Since the previous tracing, no significant change noted DOCTOR: Luis Hatfield Interpretating Date/Time 01/10/2018 20:32:14
[2018-01-11 08:00] LABS: Calcium 8.1 mg/dL (8.5-10.1); Potassium 3.3 meq/L (3.5-5.1)
[2018-01-11 08:04] LABS: Chol/HDL Ratio 3.43 Ratio; HDL Cholesterol 55.6 mg/dL (40.0-60.0)
[2018-01-11] MEDS: Senna/Docusate Sodium 8.6/50 MG Tablet PO SCH ×2 (10:28→19:59)
[2018-01-11] MEDS: LORazepam 1 MG Tablet PO PRN ×3 (11:30→19:59)
[2018-01-11] MEDS: FLUoxetine 20 MG Capsule PO SCH (14:08)
[2018-01-11 16:17] LABS: Hemoglobin A1c 5.5 % (4.3-6.0)
--- NOTE | 2018-01-11 16:42 | P.CONPSY ---
Provisional Diagnosis Admission Date: January 10, 2018 08:12 [place] I.: Major depressive disorder recurrent, severe without psychosis, chronic PTSD, anxiety, alcohol use disorder History of Present Illness Service: Psychiatry Consult date: 01/11/18 Requesting Physician: Solo Salazar Reason for Consult: Second opinion Primary Care Provider: No Primary Care Physician Family Provider: No Primary Care Physician History of Present Illness: Patient is a 42-year-old woman, , domiciled with , with a past psychiatric history of major depressive disorder, alcohol use disorder, PTSD, anxiety disorder, with previous psychiatric admissions last time being 2010 currently has outpatient follow-up at [facility] who is admitted to the inpatient psychiatry unit for suicide attempt via overdose which patient was also brought under Merritt act. Patient was found lying hospital bed with at bedside interviewed alone with nurse. Patient states that she is here because "I wanted to ". Patient reports having had suicide ideation for weeks now also having difficulty with worsening depressed mood and reporting "sleeping too much". Patient also reports feeling helpless and hopeless for the past couple of weeks denying any specific trigger or significant event related to worsening of her depressed mood. Patient denies any perceptual disturbances. Patient recalls having taking 20 pills of Geodon and 20 pills of trazodone and having laid on the couch which she had mentioned to her after the overdose which she had done but states that if her had not woken up she went out of mention this to him. Patient also states having daily alcohol use about 3 beers at a time. Patient states after the overdose she expected to , currently regretful and at this time denying any suicidal ideations. Collateral information obtained by patient's after interview with patient states that he had noticed patient declining for the past couple of months where patient is unmotivated, mostly isolative, not engaging in support group and the charge for for sometime now and lapsing on her medication refills. Currently he is concerned of worsening depression and her recent suicide attempt but is supportive. Review of Systems All other systems reviewed negative except [facility] - History History Provided By: Patient, Family Member, Medical Record - Medical History Medical History: Medical History (Last Reviewed 01/10/18 @ 12:47 by Cecy Peraza RN) History of anxiety History of depression History of hypertension History of shortness of breath - Surgical History Surgical History: Surgical History (Last Reviewed 01/10/18 @ 12:46 by Cecy Peraza RN) Hx of section Hx of laparoscopy - Tobacco History Second Hand Smoke Exposure: No Smoking Status: Never smoker - Alcohol History How Often Do You Have a Drink Containing Alcohol: 2 to 3 times a week - Substance Use History Substance History: No History of Abuse - Travel History Recent Travel in the [place] Within the Last 8 Weeks: No Recent Travel Out of the Country Within the Last 8 Weeks: No - Immunization History Tetanus Immunization: Unsure Hx Influenza Vaccine This Season: No Medications and Allergies Active Medications: Active Medications Al Hydrox/Mg Hydrox/Simethicone (Mag-Al Plus Susp Liq) 30 ml PO Q6H PRN PRN Reason: DYSPEPSIA Al Hydroxide/Mg Hydroxide (Milk Of Magnesia Liq) 30 ml PO Q12H PRN PRN Reason: Mild Constipation Bisacodyl (Dulcolax Supp) 10 mg RECTAL DAILY PRN PRN Reason: SEVERE CONSITIPATION Diphenhydramine HCl (Benadryl) 50 mg PO HS PRN PRN Reason: INSOMNIA Flumazenil (Romazecon Inj) 0.2 mg IV.PUSH Q1M PRN PRN Reason: OVERSEDATION Fluoxetine HCl (Prozac) 20 mg PO DAILY ALIX Last Admin: 01/11/18 14:08 Dose: 20 mg Haloperidol Lactate (Haldol Inj) 1 mg IV.PUSH Q15M PRN PRN Reason: for severe agitation Lactulose (Lactulose Liq) 30 ml PO DAILY PRN PRN Reason: SEVERE CONSITIPATION Lorazepam (Ativan) 1 mg PO Q4H PRN PRN Reason: for CIWA 8-10 Last Admin: 01/11/18 15:15 Dose: 1 mg Lorazepam (Ativan Inj) 2 mg IV.PUSH Q2H PRN PRN Reason: for CIWA 11-14 Lorazepam (Ativan Inj) 2 mg IV.PUSH Q1H PRN PRN Reason: for CIWA 15-20 Lorazepam (Ativan Inj) 2 mg IV.PUSH Q15M PRN PRN Reason: for CIWA > 20 Lorazepam (Ativan Inj) 1 mg IV.PUSH Q4H PRN PRN Reason: for CIWA 8-10 Lorazepam (Ativan) 2 mg PO Q2H PRN PRN Reason: for CIWA 11-14 Lorazepam (Ativan) 1 mg PO Q6H PRN PRN Reason: ANXIETY Olanzapine (Zyprexa Zydis Odt) 5 mg PO HS ALIX Senna/Docusate Sodium (Carmita-Colace) 1 tab PO BID ALIX Last Admin: 01/11/18 10:28 Dose: Not Given Sennosides (Senokot) 17.2 mg PO Q12H PRN PRN Reason: Moderate Constipation Allergies Allergy/AdvReac Type Severity Reaction Status Date / Time No Known Allergies Allergy unknown Uncoded 01/02/18 06:37 Home Medications Medication Instructions Recorded Confirmed Type albuterol sulfate [Ventolin HFA] 1 puff INHALATION Q4-6H PRN 01/02/18 01/10/18 History gabapentin 1 tab PO TID 01/02/18 01/10/18 History hydroxyzine HCl 1 tab PO TID 01/02/18 01/10/18 History trazodone 1 tab PO TID 01/02/18 01/10/18 History Exam Vital signs: Vital Signs 01/10/18 18:10 01/11/18 06:09 Temperature 98.0 F 97.4 F L Pulse Rate 65 59 L Respiratory Rate 16 18 Blood Pressure 129/80 168/96 H Pulse Oximetry 94 L 96 Intake & Output 01/10/18 01/11/18 01/11/18 18:59 06:59 18:59 Intake Total 1240 / 1240 1440 / 1440 Balance 1240 / 1240 1440 / 1440 Weight 100.1 kg 101.5 kg Intake: IV 1000 / 1000 Oral 240 / 240 1440 / 1440 Other: Weight On Admission 101.1 kg Narrative: Patient not noted to be in acute distress, no gross motor of maladies, no signs of tremor or EPS, no psychomotor agitation or retardation. - Constitutional no acute distress, cooperative Mental Status Examination Appearance: Disheveled Consciousness: Alert Orientation: x4 Motor Activity: Normal gait Speech: Unremarkable Language: Adequate Fund of Knowledge: Adequate Attention and Concentration: Adequate Memory: Unremarkable Mood: Sad Affect: Sad Thought Process & Associations: Intact Thought Content: Appropriate Hallucination Type: None Delusion Type: None Suicidal Ideation: Yes (Denies at this time) Suicidal Plan: No Suicidal Intention: No Homicidal Ideation: No Homicidal Plan: No Homicidal Intention: No Insight: Poor Judgment: Poor Assessment and Plan - Assessment (1) Major depressive disorder Code(s): F32.9 - Major depressive disorder, single episode, unspecified Status : Acute - Plan Plan: I have seen and examined this patient, reviewed the documentation, discussed personally with Dr. Salazar, and I agree and concur with his assessment and plan. Consult appreciated. Patient continues report depressed mood, although denying suicide ideations is unreliable to contract for safety at this time. We will start Prozac 20 mg p.o. daily, Zyprexa 5 mg p.o. at bedtime, patient will continue on CIWA protocol for alcohol withdrawal. Patient counseled on importance of abstinence from alcohol use. Patient has capacity to consent for treatment. Continue to monitor mood and behavior. Continue recommendations as per prior medical team. Discharge planning in progress. Justification for Continued Inpatient Stay: At risk of further decompensation at lower level care. (1) Major depressive disorder Qualifiers: Major depression recurrence: recurrent Active/Remission status: currently active Major depression episode severity: severe Psychotic features: without psychotic features Qualified Code(s): F33.2 - Major depressive disorder, recurrent severe without psychotic features
[2018-01-12] MEDS: LORazepam 1 MG Tablet PO PRN ×3 (02:16→20:00)
[2018-01-12] MEDS: Senna/Docusate Sodium 8.6/50 MG Tablet PO SCH ×2 (09:35→20:00)
[2018-01-12] MEDS: FLUoxetine 20 MG Capsule PO SCH (09:35)
--- NOTE | 2018-01-12 15:00 | P.PNPSY ---
Subjective Remarks: Patient seen for follow, chart reviewed. Discussion nursing staff reported the patient continues to be noted to be dysphoric, compliant with medications, CIWA has been between 4-5. Patient was found sitting in hospital bed with at bedside noted to be dysphoric, some slight psychomotor retardation. Patient states that her mood has been "down" denying any suicide ideations today and noted to be tearful and somewhat anxious. Patient stated that she is still remorseful for her recent actions, and feeling anxious due to "not feeling in full control of the situation" referring to her recent suicide attempt. Patient reports poor sleep this evening stating that the Benadryl did not help. Review of Systems All other systems reviewed negative except as stated in HPI Mental Status Examination Appearance: Disheveled Consciousness: Alert Orientation: x4 Motor Activity: Normal gait Speech: Unremarkable Language: Adequate Fund of Knowledge: Adequate Attention and Concentration: Adequate Memory: Unremarkable Mood: Sad Affect: Sad, Other (Tearful at times) Thought Process & Associations: Intact Thought Content: Appropriate Hallucination Type: None Delusion Type: None Suicidal Ideation: Yes (Denies at this time) Suicidal Plan: No Suicidal Intention: No Homicidal Ideation: No Homicidal Plan: No Homicidal Intention: No Insight: Poor Judgment: Poor Assessment and Plan - Assessment (1) Major depressive disorder Code(s): F32.9 - Major depressive disorder, single episode, unspecified Status : Acute - Plan Plan: Patient continues to be dysphoric, continues to be remorseful recent suicide attempt and denies any suicide ideations today. We will continue CIWA protocol , withdrawal precautions. Continue current treatment regimen, we will discontinue Benadryl and add temazepam 7.5 mg as needed for insomnia. Continue to monitor mood and behavior. Discharge planning i progress. Justification for Continued Inpatient Stay: At risk for further decompensation if at lower level of care. (1) Major depressive disorder Qualifiers: Major depression recurrence: recurrent Active/Remission status: currently active Major depression episode severity: severe Psychotic features: without psychotic features Qualified Code(s): F33.2 - Major depressive disorder, recurrent severe without psychotic features
--- NOTE | 2018-01-12 15:43 | P.TTN ---
- Patient Problems Problems: 1. Discharge planning 2. Medication compliance 3. Knowledge deficit 4. Lack of coping skills - Progress Toward Goals Provider Present: Dr. Ramya Oliva Provider Input: Pt is new following overdose. History of MDD, PTSD, and anxiety. We will discuss medication. Nurse(s) Present: Sea Nurse Input: Pt c/o her roommate. She is CIWA negligible, requests Ativan sometimes. She is depressed, flat, sleeps well, and is cooperative. Psychiatric Counselors Present: Lucie Meek LCSW, Júnior Dotson Jr., [facility], Kateryna Turner, [facility], Other Psychiatric Therapist Input: New pt Group Spec/RT/OT/WHITE Present: CHRISTOPHER Nuñez Group Spec/RT/OT/WHITE Input: New pt - Documentation Teaching Recipient: Patient
[2018-01-13] MEDS: LORazepam 1 MG Tablet PO PRN ×4 (02:58→20:13)
[2018-01-13] MEDS: FLUoxetine 20 MG Capsule PO SCH (08:52)
[2018-01-13] MEDS: Senna/Docusate Sodium 8.6/50 MG Tablet PO SCH ×2 (08:52→20:13)
--- NOTE | 2018-01-13 10:32 | P.TTN ---
- Patient Problems Problems: 1. Discharge planning 2. Medication compliance 3. Knowledge deficit 4. Lack of coping skills - Progress Toward Goals Provider Present: Dr. Ramya Oliva Provider Input: Pt is new following overdose. History of MDD, PTSD, and anxiety. We will discuss medication. 01/13/18: Per Dr Oliva; Medication adjustments with goal of stabilization of pt on-going. MD to pursue Voluntary Status for goal of DC of pt back home with spouse. Nurse(s) Present: Sea Nurse Input: Pt c/o her roommate. She is CIWA negligible, requests Ativan sometimes. She is depressed, flat, sleeps well, and is cooperative. 01/14/28: Per Sonali, RN; Pt compliant with medication, pt participating with on-going education as pt will benefit from additional education. Psychiatric Counselors Present: Lucie Meek LCSW, Júnior Dotson Jr., [facility], Kateryna Turner, [facility], Other Psychiatric Therapist Input: New pt. 01/13/18: Kateryna working on pt DC to home wiht spouse and follow-up with [facility] and [facility] out-pt services. Group Spec/RT/OT/WHITE Present: Estefanía Huerta, GPS, Alexandria Garibay WHITE, Jeet Roy, OT Group Spec/RT/OT/WHITE Input: New pt. 01/13/18: Pt has not been attending groups per pt refusals. Occupational Therapist Input: 01/13/18: Pt seen with spouse by OTR during visiting hours. Pt and spouse educated as to hospital procedures, OTR encourages spousal visits per evident social support benefits. - Discharge Plan [facility] 01/13/18: Per Kateryna with MD in agreement; DC goals include [facility] out-patient and [facility] as follow-up supports. Pt is expected to DC to home with spouse. - Documentation Teaching Recipient: Patient
[2018-01-13] MEDS ORDERED: Temazepam 15 MG Capsule PO PRN (10:43)
--- NOTE | 2018-01-13 10:43 | P.PNPSY ---
Subjective Remarks: Patient seen for follow, chart reviewed. Discussion nursing staff reported the patient continues to feel anxious, had poor sleep less evening despite as needed medications and continues to appear depressed. Patient was found lying hospital bed noted B, cooperative. Patient states that she continues report feeling depressed, continues to deny any suicide ideations last time being the day of the overdose. Patient states her recent liver for her family and for herself as well as religiously invested stating that she wants to go to [facility]. She reports having poor sleep less evening difficulty maintaining sleep. Patient was encouraged to participate more in ADLs as well as in groups and activities which she agreed. Patient denies any perceptional disturbances or delusions. Review of Systems All other systems reviewed negative except as stated in HPI Mental Status Examination Appearance: Disheveled Consciousness: Alert Orientation: x4 Motor Activity: Normal gait Speech: Unremarkable Language: Adequate Fund of Knowledge: Adequate Attention and Concentration: Adequate Memory: Unremarkable Mood: Sad Affect: Sad, Other (Tearful at times) Thought Process & Associations: Intact Thought Content: Appropriate Hallucination Type: None Delusion Type: None Suicidal Ideation: Yes (Denies at this time) Suicidal Plan: No Suicidal Intention: No Homicidal Ideation: No Homicidal Plan: No Homicidal Intention: No Insight: Poor Judgment: Poor Assessment and Plan - Assessment (1) Major depressive disorder Code(s): F32.9 - Major depressive disorder, single episode, unspecified Status : Acute - Plan Plan: Patient continues to be very dysphoric, with some psychomotor retardation, continues report feeling depressed, denying any suicide ideations today. Patient continues appeared to be disheveled, middle knee interactive, mostly isolative to her room. We will increase temazepam to 50 mg p.o. at bedtime for sleep disturbance, continue rest of treatment regimen. We will continue to monitor mood and behavior. Continue CIWA protocol, withdrawal precautions. Encourage patient to participate more in groups and activities while on the unit. Discharge planning in progress. Justification for Continued Inpatient Stay: At risk of further decompensation a lower level care. (1) Major depressive disorder Qualifiers: Major depression recurrence: recurrent Active/Remission status: currently active Major depression episode severity: severe Psychotic features: without psychotic features Qualified Code(s): F33.2 - Major depressive disorder, recurrent severe without psychotic features
--- NOTE | 2018-01-13 10:51 | P.DSPSY ---
Psychiatry Discharge Summary Inpatient Psychiatric care?: Yes Advance Directives: No Reason for Unknown:: Other Other Reason for Unknown: patient states she does not have an advance directive Mental Health Advance Directive: No Health Care Proxy: No - Admission Admission Date: January 10, 2018 08:12 - Admission Diagnosis (1) Major depressive disorder Code(s): F32.9 - Major depressive disorder, single episode, unspecified Brief History: The patient is a 42-year-old woman, domiciled in [place] with her , she has 6 kids, unemployed, with a psychiatric history of alcohol use disorder, major depressive disorder, recurrent, PTSD, anxiety, she is on trazodone 100 mg, hydroxyzine 50 mg, Geodon 20 mg twice daily, gabapentin 800 mg twice, outpatient in [facility], multiple suicidal attempts, self cutting behavior without SI, medical history hypertension, who presents to the emergency department under a Merritt act following reported overdose. Patient reports that over the past several hours she handful of pills, and assortment of trazodone, gabapentin, hydroxyzine, and ziprasidone. Patient states that she was trying to go to sleep and not wake up. Her apparently found her and she told him what happened and he patient states over the past several weeks she has had increasing depression, she says that her mother in June 07, she says that she does not have any mind clarity, that her health mental health are declining significantly, that she does not have a reason to live. She reports poor sleep, helplessness, hopeless, generalized pessimism, poor sleep at night she said suicidal thoughts, that were worse tonight. She drinks regularly, drank earlier today but denies alcohol use this evening. She denies the use of illegal drugs. PPHx:sychiatric history of alcohol use disorder, major depressive disorder, recurrent, PTSD, anxiety, she is on trazodone 100 mg, hydroxyzine 50 mg, Geodon 20 mg twice daily, gabapentin 800 mg twice, outpatient in [facility], multiple suicidal attempts, self cutting behavior without SI PMHx: Hypertension Substance Hx: She reports daily use of alcohol, denies illegal drug Family Hx: No family psychiatric history Social Hx: The patient was born and raised in [place], she lives in [place] with her , she is a mother of 6 kids, unemployed, supported by , highest level of education is GED Tobacco Use In Past 30 Days: No How Often Do You Have a Drink Containing Alcohol: 2 to 3 times a week Hospital Course: Patient is a 42-year-old woman, , domiciled with , with a past psychiatric history of major depressive disorder, alcohol use disorder, PTSD, anxiety disorder, with previous psychiatric admissions last time being 2010 currently has outpatient follow-up at [facility] who is admitted to the inpatient psychiatry unit for suicide attempt via overdose which patient was also brought under Merritt act which patient was admitted to the inpatient psychiatry unit for further evaluation and management. Patient was resumed on fluoxetine and titrated to 40mg PO daily and bupropion SR 150mg PO BID which she tolerated well with minimal side effects. Patient noted to have reached stabilization of mood throughout admission. There was no evidence of any suicidality or homicidality on the inpatient unit. Patient's depression improved with the benefit of psychopharmacologic treatment and had no behavioral disturbance since admission. Patient had consult with medical and trauma surgical team for recent laceration of scalp and provided recommendations for treatment and follow up. Counselor has arranged for follow up appointments for continuity of care. On the day of discharge: Patient seen and examined; chart reviewed. Case discussed with nurse and counselor. No behavioral issues overnight. On my examination today, the patient is agreeable to a discharge to her home with her daughter whom will be living with the patient and provide support. She denies any suicidal or homicidal ideation, intent or plan on direct questioning and contracts for safety. I can elicit no mood symptoms. She denies any audiovisual hallucinations. No delusional material verbalized today. She denies any side effects from medications. She has an understanding of her medication regimen and indication. No physical complaints. Suicide and violence risk assessment on day of discharge both suggest lower imminent risk, and the patient's level of function is adequate for planned level of outpatient care. Patient has maximized benefit from this inpatient psychiatric hospital stay and will be discharged with follow-up as arranged by counselor. Patient advised to return to psychiatric emergency room for any concerning psychiatric symptoms. Patient agrees with plan. - Discharge Discharge Date: 01/13/18 - Discharge Diagnosis (1) Major depressive disorder Code(s): F32.9 - Major depressive disorder, single episode, unspecified Status : Acute Discharge Disposition: Home - Discharge Instructions Discharge Diet: Heart Healthy Diet Activities You Can Perform: Regular- No Restrictions - Discharge Time > 30 minutes Mental Status Examination Appearance: Appropriate Consciousness: Alert Orientation: x4 Motor Activity: Normal gait Speech: Unremarkable Language: Adequate Fund of Knowledge: Adequate Attention and Concentration: Adequate Memory: Unremarkable Mood: Appropriate Affect: Appropriate Thought Process & Associations: Intact, Goal directed, Linear Thought Content: Appropriate Hallucination Type: None Delusion Type: None Suicidal Ideation: No Suicidal Plan: No Suicidal Intention: No Homicidal Ideation: No Homicidal Plan: No Homicidal Intention: No Insight: Adequate Judgment: Adequate Discharge/Advance Care Plan - Results Vital Signs: Last Vital Signs Temp 97.7 F 01/13/18 06:00 Pulse 71 01/13/18 06:00 Resp 15 01/13/18 06:00 BP 112/64 01/13/18 06:00 Pulse Ox 95 01/13/18 06:00 Lab Results: Laboratory Results Hemoglobin A1c 5.5 % (4.3-6.0) 01/11/18 06:40 Triglycerides 215 mg/dL (42-150) H 01/11/18 06:40 Cholesterol 191 mg/dL (120-200) 01/11/18 06:40 LDL Cholesterol, Calc 92 mg/dL (0-99) 01/11/18 06:40 HDL Cholesterol 55.6 mg/dL (40.0-60.0) 01/11/18 06:40 Summary of Procedures: none Pending Results: None - Medications Number of antipsychotic medications at discharge: 0 - Discharge Care Plan Goals to Promote Your Health: * To prevent worsening of your condition and complications * To maintain your health at the optimal level Directions to Meet Your Goals: Take your medications as prescribed Follow your dietary instruction Follow activity as directed Keep your appointments as scheduled Take your immunizations and boosters as scheduled If your symptoms worsen call your PCP, if no PCP go to Urgent Care Center or Emergency Room For 08/12 questions related to your inpatient stay or results of tests pending at discharge, please contact Dr. Jerrod Oliva MD at Smoking is Dangerous to Your Health. Avoid second hand smoking (1) Major depressive disorder Qualifiers: Major depression recurrence: recurrent Active/Remission status: currently active Major depression episode severity: severe Psychotic features: without psychotic features Qualified Code(s): F33.2 - Major depressive disorder, recurrent severe without psychotic features (1) Major depressive disorder Qualifiers: Major depression recurrence: recurrent Active/Remission status: currently active Major depression episode severity: severe Psychotic features: without psychotic features Qualified Code(s): F33.2 - Major depressive disorder, recurrent severe without psychotic features
[2018-01-14] MEDS: LORazepam 1 MG Tablet PO PRN ×2 (04:04→09:34)
[2018-01-14 05:55] VITALS: BP 133/71; PULSE 78; RESP 18; TEMP 96.8; O2SAT 96
[2018-01-14] MEDS: Senna/Docusate Sodium 8.6/50 MG Tablet PO SCH (09:34)
[2018-01-14] MEDS: FLUoxetine 20 MG Capsule PO SCH (09:34)
== END 2018-01-14 17:45 | disposition home or self-care (01) ==
LOC: NEPE 04:15 → NEDA 08:12 → H4EA 10:42
PROVIDERS: ADMIT Student in an Organized Health Care Education/Training Program; ATTEND Student in an Organized Health Care Education/Training Program